=== PATIENT | female | born 1930 | race Caucasian/White ===

== ENCOUNTER → 2017-01-04 | Outpatient (CLI) | payer OTHER, BC ==
[~2017-01-04] MED LIST: AMOX250C3 PO; ARTIOIN OP; ARTISOL8 OPB; AZAT50TA17 PO; PRED-301 PO; TRIA37.5 PO
[2017-01-04 08:57] LABS: BASO % 0.3 %; BASO ABS # 0.02 K/uL (0-0.2); COMPLETE YES; HEMATOCRIT 36.9 % (37-47); IG% 0.4 %; LYMPH % 11.9 %; MEAN CORPUSCULAR HEMOGLOBIN 31.4 pg (25-34); MEAN CORPUSCULAR HGB CONC 34.1 g/dl (32-36); MEAN PLATELET VOLUME 9.1 fL (7.4-10.4); MONO % 13.1 %; NEUT % 72.3 %; PLATELET COUNT 262 K/uL (130-400); RED BLOOD COUNT 4.01 M/uL (4.2-5.4); WHITE BLOOD COUNT 7.55 K/uL (4.8-10.8)
[2017-01-04 09:03] LABS: BLOOD UREA NITROGEN 30 mg/dl (7-18); BUN/CREATININE RATIO 33.9 (10-20); CARBON DIOXIDE 32 mmol/L (21-32); CHLORIDE 97 mmol/L (98-107); CREATININE 0.87 mg/dl (0.60-1.20); GLUCOSE 85 mg/dl (70-99); POTASSIUM 3.9 mmol/L (3.5-5.1); SODIUM 135 mmol/L (136-145)
== END | disposition home or self-care (01) ==
LOC: C.LABVPSUA 08:40
PROVIDERS: ATTEND Internal Medicine Critical Care Medicine
DX: I10 Essential (primary) hypertension (principal)

== ENCOUNTER → 2017-12-27 | Outpatient (CLI) | payer OTHER, BC ==
[2017-12-27 09:30] LABS: HEMATOCRIT 37.4 % (37-47); HEMOGLOBIN 12.4 g/dL (12.0-16.0); MEAN CELL VOLUME 92.6 fL (80-100); MEAN CORPUSCULAR HEMOGLOBIN 30.7 pg (25-34); MEAN CORPUSCULAR HGB CONC 33.2 g/dl (32-36); MEAN PLATELET VOLUME 9.4 fL (7.4-10.4); PLATELET COUNT 249 K/uL (130-400); RED CELL DISTRIBUTION WIDTH CV 13.5 % (11.5-14.5); RED CELL DISTRIBUTION WIDTH SD 45.8 fL (36.4-46.3); WHITE BLOOD COUNT 7.48 K/uL (4.8-10.8)
[2017-12-27 09:41] LABS: BLOOD UREA NITROGEN 30 mg/dl (7-18); CALCIUM 8.9 mg/dl (8.5-10.1); CARBON DIOXIDE 30 mmol/L (21-32); CREATININE 0.82 mg/dl (0.60-1.20); GLUCOSE 82 mg/dl (70-99); POTASSIUM 4.5 mmol/L (3.5-5.1); SODIUM 135 mmol/L (136-145)
== END ==
LOC: C.LABVPSUA 09:17
PROVIDERS: ATTEND Internal Medicine Critical Care Medicine
DX: R63.1 Polydipsia (principal); D64.9 Anemia, unspecified; L65.9 Nonscarring hair loss, unspecified

== ENCOUNTER 2018-04-08 16:34 | Inpatient (IN) | payer OTHER, BC ==
[~2018-04-08] VITALS: Ht 157.5 cm; Wt 56.0 kg
--- NOTE | 2018-04-08 16:50 | EMERGENCY ROOM VISIT NOTE ---
History Report prepared by Martha: Tony Pardo Under the Supervision of: Dr. Mars Aleman M.D. First contact with patient: 16:36 Chief Complaint: SHORTNESS OF BREATH Stated Complaint: SOB History of Present Illness The patient is a 87 year old white female with a past medical history of HTN, RA , cholecystectomy, and peripheral vascular disease who presents to the ED with a cc of persistent shortness of breath beginning this morning. Positive productive cough, lower extremity swelling. Negative sore throat, chest pain, nausea, vomiting. Per EMS, the patient was given an albuterol treatment and was put on oxygen, which helped mildly relieve her symptoms. Source of History: patient, EMS Onset: this morning Quality: other (short of breath) Timing: other (persistent) Modifying Factors (Relieving): oxygen, other (albuterol treatment) Associated Symptoms: + cough, No sorethroat, No chest pain, No nausea, No vomiting Note: Associated symptoms: LE swelling Review of Systems See HPI for pertinent positives and negatives. A total of ten systems were reviewed and were otherwise negative. Past Medical & Surgical Medical Problems: (1) Hypertension (2) PAD (peripheral artery disease) (3) Rheumatoid arthritis (4) Vascular disease of legs and feet Surgical Problems: (1) Hx of cholecystectomy Family History Patient reports no known family medical history. Social History Smoking Status: Never Smoker Alcohol Use: none Drug Use: none Marital Status: Housing Status: lives with family Occupation Status: retired Current/Historical Medications Scheduled Ascorbic Acid (Ascorbic Acid), 500 MG PO DAILY Azathioprine (Imuran), 25 MG PO DAILY Carbamide Peroxide (Otic) (Debrox), 5 DROPS OT PRN/UD Hydrochlorothiazide (Hctz), 25 MG PO DAILY Lisinopril (Zestril), 2.5 MG PO DAILY Polyethylene Glycol-Propylene (Systane), 1 DROPS OPB TID Prednisone (Prednisone), 10 MG PO DAILY Scheduled PRN Acetaminophen (Tylenol), 650 MG PO Q4H PRN for Pain or Fever Calcium Carbonate (Tums), 500 MG PO QID PRN for Indigestion Tramadol (Ultram), 50 MG PO Q6H PRN for Pain Allergies Coded Allergies: Erythromycin (Verified Adverse Reaction, Mild, upset stomach, 11/17/11) Physical Exam Vital Signs Date Time Temp Pulse Resp B/P (MAP) Pulse Ox O2 Delivery O2 Flow Rate FiO2 04/08/18 21:16 97 04/08/18 20:54 96 22 178/89 98 Nasal Cannula 2.0 04/08/18 18:55 88 24 97 Nasal Cannula 2.0 04/08/18 18:04 87 24 205/93 100 Nasal Cannula 2.0 04/08/18 17:03 83 04/08/18 16:44 96 Room Air 04/08/18 16:44 96 Room Air 04/08/18 16:44 96 Room Air 04/08/18 16:44 36.9 86 26 199/88 96 Room Air Physical Exam GENERAL: Awake, alert, well-appearing, in moderate distress, nasal canula in place. HENT: Normocephalic, atraumatic. EYES: Normal conjunctiva. Sclera non-icteric. PERRL. No anisocoria. NECK: Supple. No nuchal rigidity. FROM. Non stridulous. RESPIRATORY: CTAB, no rhonchi, wheezing, crackles CARDIAC: RRR, no MRG ABDOMEN: Soft, NTND, BS+ MSK: No chest wall TTP, no LE edema NEURO: GCS 15, CN 2-12 intact, moves all 4s on command SKIN: No rash or jaundice noted. Contractures at bilateral hands. Superficial ulcerations bilaterally feet plantar surface. Medical Decision & Procedures ER Provider Diagnostic Interpretation: Radiology results as stated below per my review and radiologist interpretation: CHEST ONE VIEW PORTABLE CLINICAL HISTORY: EVALUATE RESPIRATORY DISTRESS.DYSPNEA COMPARISON STUDY: Chest radiograph July 29, 2016 PA FINDINGS: Incidental note is made of severe osteoarthritis of both glenohumeral joints. There is no pneumothorax. Mild elevation of the left hemidiaphragm is noted. Left basilar opacity is noted. There is lower lung interstitial thickening which suggests chronic interstitial lung disease. There may be calcified mediastinal left hilar nodes. Mild to moderate cardiomegaly is noted. There is no evidence for pulmonary edema. IMPRESSION: 1. Lower lung interstitial thickening which suggests interstitial lung disease. 2. Left basilar opacity which favors atelectasis. 3. Mild to moderate cardiomegaly without evidence for pulmonary edema. Electronically signed by: Néstor Rod M.D. 04/08/2018 4:59 PM Dictated Date/Time: 04/08/2018 4:[address] ANGIOGRAPHY OF THE CHEST, PULMONARY EMBOLUS PROTOCOL CLINICAL HISTORY: Shortness of breath. COMPARISON STUDY: Chest radiograph July 29, 2016 and April 08, 2018. TECHNIQUE: Following IV administration of 115 mL of Optiray-320, helical axial images of the chest were obtained utilizing the pulmonary embolus protocol. Maximal intensity projections and sagittal and coronal reformats were viewed on an independent 3D workstation. IV contrast was administered without complication. A dose lowering technique was utilized adhering to the principles of ALARA. FINDINGS: No pulmonary emboli are identified. The heart is moderately enlarged. There is no thoracic aortic dissection or pericardial effusion. There is extensive atherosclerotic plaque of the coronary arteries and the thoracic aorta. Of note, there is a saccular outpouching arising from the proximal abdominal aorta that measures 4.1 x 3.5 cm. This is either at or immediately superior to the takeoff of the celiac axis. There is no evidence for rupture. This contains eccentric mural thrombus. There is severe stenosis at the origin of the celiac axis and superior mesenteric arteries. No pneumothorax is present. There is no pleural effusion. Mild groundglass opacities throughout the lungs are noted. Lower lung predominant subpleural cystic changes noted. This is similar to exam of December 01, 2013. There is band-like left lower lobe opacity is well. There are multiple compression fractures within the lower thoracic and upper lumbar spine mild biliary ductal dilatation is likely related to prior cholecystectomy. This is unchanged. There is trace pneumobilia. IMPRESSION: 1. No pulmonary emboli identified. 2. 4.1 x 3.5 cm saccular outpouching arising from anterior aspect of the proximal abdominal aorta, either at or immediately proximal to the takeoff of the celiac axis. This either reflects a saccular aneurysm or large penetrating ulcer. No rupture. Vascular surgery consultation is recommended. Severe stenosis at the origin of the celiac axis and superior mesenteric artery with extensive multifocal atherosclerotic plaque. Extensive coronary artery calcification. 3. Lower lung predominant subpleural cystic change. This could reflect cystic lung disease or honeycombing. 4. Mild groundglass opacities within the lungs which favor atelectasis. However, mild pulmonary edema could appear similar. Electronically signed by: Néstor Rod M.D. 04/08/2018 7:26 PM Dictated Date/Time: 04/08/2018 7:[address] ANGIOGRAPHY OF THE NECK WITH CONTRAST CLINICAL HISTORY: Shortness of breath. Hoarse voice. COMPARISON STUDY: No previous studies for comparison. Technique: CT angiography of the carotid and vertebral arteries was obtained using [employer] 320 IV and 3D reconstruction on an independent workstation. NASCET criteria was utilized. A dose lowering technique was utilized adhering to the principles of ALARA. CT DOSE: 620.42 mGy.cm Findings: Please note that the chest CT will be reported separately. Apparent thickening of the vocal cords, right greater than left, is noted. This is likely artifactual. Evaluation is difficult given motion artifact at this level. Epiglottis is normal. There is no cervical lymphadenopathy. No suspicious osseous lesions are present. There is moderate plaque within the proximal bilateral internal carotid arteries without high-grade stenosis. Moderate to severe stenosis at the origin of the right vertebral artery. The right vertebral artery is dominant. There is mild stenosis of the intracranial portion of the right vertebral artery. There is occlusion versus severe stenosis at the origin of the left vertebral artery. Multifocal stenoses within the left vertebral artery are noted. Visualized portions of the intracranial contents are unremarkable. Orbits are unremarkable. Sinuses and mastoid air cells are clear. IMPRESSION: 1. Moderate atherosclerotic plaque within the proximal bilateral internal carotid arteries without significant stenosis. 2. Severe multifocal stenoses of the left vertebral artery. Moderate to severe stenosis at the origin of the right vertebral artery. 3. Apparent thickening of the vocal cords, right greater than left. This is suboptimally assessed on this exam given motion artifact and is probably artifactual. However, a mass lesion cannot be excluded and if persistent symptoms, correlation with direct visualization is recommended. Electronically signed by: Néstor Rod M.D. 04/08/2018 7:12 PM Dictated Date/Time: 04/08/2018 7:03 PM Laboratory Results 04/08/18 17:00 Red Blood Count 4.64, Mean Corpuscular Volume 92.0, Mean Corpuscular Hemoglobin 30.8, Mean Corpuscular Hemoglobin Concent 33.5, Mean Platelet Volume 9.2, Neutrophils (%) (Auto) 87.7, Lymphocytes (%) (Auto) 8.1, Monocytes (%) (Auto) 3.5, Eosinophils (%) (Auto) 0.1, Basophils (%) (Auto) 0.1, Neutrophils # (Auto) 7.48, Lymphocytes # (Auto) 0.69, Monocytes # (Auto) 0.30, Eosinophils # (Auto) 0.01, Basophils # (Auto) 0.01 04/08/18 17:00 Test 04/08/18 17:00 04/08/18 18:06 White Blood Count 8.53 K/uL (4.8-10.8) Red Blood Count 4.64 M/uL (4.2-5.4) Hemoglobin 14.3 g/dL (12.0-16.0) Hematocrit 42.7 % (37-47) Mean Corpuscular Volume 92.0 fL (80-100) Mean Corpuscular Hemoglobin 30.8 pg (25-34) Mean Corpuscular Hemoglobin Concent 33.5 g/dl (32-36) Platelet Count 240 K/uL (130-400) Mean Platelet Volume 9.2 fL (7.4-10.4) Neutrophils (%) (Auto) 87.7 % Lymphocytes (%) (Auto) 8.1 % Monocytes (%) (Auto) 3.5 % Eosinophils (%) (Auto) 0.1 % Basophils (%) (Auto) 0.1 % Neutrophils # (Auto) 7.48 K/uL (1.4-6.5) Lymphocytes # (Auto) 0.69 K/uL (1.2-3.4) Monocytes # (Auto) 0.30 K/uL (0.11-0.59) Eosinophils # (Auto) 0.01 K/uL (0-0.5) Basophils # (Auto) 0.01 K/uL (0-0.2) RDW Standard Deviation 45.8 fL (36.4-46.3) RDW Coefficient of Variation 13.6 % (11.5-14.5) Immature Granulocyte % (Auto) 0.5 % Immature Granulocyte # (Auto) 0.04 K/uL (0.00-0.02) Prothrombin Time 10.0 SECONDS (9.0-12.0) Prothromb Time International Ratio 1.0 (0.9-1.1) Activated Partial Thromboplast Time 25.2 SECONDS (21.0-31.0) Partial Thromboplastin Ratio 1.0 Anion Gap 5.0 mmol/L (3-11) Est Creatinine Clear Calc Drug Dose 34.4 ml/min Estimated GFR () 59.7 Estimated GFR (Non- 51.5 BUN/Creatinine Ratio 34.9 (10-20) Calcium Level 8.9 mg/dl (8.5-10.1) Total Bilirubin 0.6 mg/dl (0.2-1) Direct Bilirubin 0.1 mg/dl (0-0.2) Aspartate Amino Transf (AST/SGOT) 21 U/L (15-37) Alanine Aminotransferase (ALT/SGPT) 20 U/L (12-78) Alkaline Phosphatase 59 U/L (45-117) Troponin I 0.044 ng/ml (0-0.045) Pro-B-Type Natriuretic Peptide 2892 pg/ml (0-1800) Total Protein 8.3 gm/dl (6.4-8.2) Albumin 3.4 gm/dl (3.4-5.0) Lipase 264 U/L (73-393) Urine Color YELLOW Urine Appearance CLEAR (CLEAR) Urine pH 7.5 (4.5-7.5) Urine Specific [place] 1.013 (1.000-1.030) Urine Protein NEG (NEG) Urine Glucose (UA) NEG (NEG) Urine Ketones NEG (NEG) Urine Occult Blood NEG (NEG) Urine Nitrite NEG (NEG) Urine Bilirubin NEG (NEG) Urine Urobilinogen NEG (NEG) Urine Leukocyte Esterase TRACE (NEG) Urine WBC (Auto) 1-5 /hpf (0-5) Urine RBC (Auto) 0-4 /hpf (0-4) Urine Hyaline Casts (Auto) 1-5 /lpf (0-5) Urine Epithelial Cells (Auto) 10-20 /lpf (0-5) Urine Bacteria (Auto) NEG (NEG) Venous Blood pH 7.46 (7.36-7.41) Venous Blood Partial Pressure CO2 40 mmHg (38.0-50.0) Venous Blood Partial Pressure O2 68 mmHg Venous Blood HCO3 28 mmol/L Venous Blood Oxygen Saturation 93.7 % Venous Blood Base Excess 3.8 mEq/L Laboratory results reviewed by me Medications Administered Medications (Trade) Dose Ordered Sig/Radha Route Start Time Stop Time Status Last Admin Dose Admin Sodium Chloride 500 ml @ 500 mls/hr Q1H STAT IV 04/08/18 17:50 04/08/18 18:49 DC 04/08/18 17:15 500 MLS/HR ECG Per My Interpretation Indication: SOB/dyspnea Rate (beats per minute): 87 Rhythm: normal sinus Findings: T-wave inversion (Lead I and AVL), left axis deviation, other ( depressions in Lead III and AVF, T wave depression in Lead I and AVL) Comparison ECG Date: 12/03/13 Change: Findings are new ED Course 163: The patient was evaluated in room C02B. A complete history and physical exam was performed. 1655: I discussed the patients case with Dr. Becker, [facility] [place] [place] Cardiology. He suggests working up the patient for a rule out of a PE. 1803: I reevaluated the patient and she is doing better. 1939: I discussed the patients case with Dr. Maldonado, [facility]. He suggests controlling the patients blood pressure. 1947: I discussed the patients case with Dr. Jansen, [facility] Hospitalist. He understands the patients condition and agrees to accept the patient. The patient will be evaluated for further management. Medical Decision Nursing notes reviewed. Ancillary studies and prior records reviewed. The patient is a 87 year old white female with a past medical history of HTN, RA , cholecystectomy, and peripheral vascular disease who presents to the ED with a cc of persistent shortness of breath beginning this morning. The patient's presentation and history were concerning for etiologies such as infections, reactive airway disease, pneumonia, pneumothorax, COPD, CHF, cardiac ischemia, pulmonary embolism, musculoskeletal, gastrointestinal, as well as others were entertained. Patient was seen and evaluated the bedside. Patient did complain of acute onset of shortness of breath beginning this morning. Patient denies any infectious symptoms. Patient was placed on oxygen as well is given an albuterol treatment prior to arrival. The patient does sounds that she has a mildly hoarse voice. The patient is non-stridulous and the patient does have clear breath sounds. The patient does not appear overtly volume overloaded and does not have any crackles. Patient did blood work completed along with EKG troponin chest x-ray. Patient' s EKG did show some subtle elevations in the inferior leads. Patient denies any chest pains. Patient is notably hypertensive. I did speak with the on- call senior database engineer who stated to continue medical treatment unless there were more clear signs of cardiac ischemia. Patient's blood work does show an elevated BNP. Upon review of a prior echo the patient does have some MR TR and some diastolic dysfunction. The patient does have an elevated BUN/creatinine ratio. Patient's hemoglobin is not low. Less likely GI bleed. Believe patient is fairly volume down at the bedside ultrasound showed a virtually flat IVC. Will gently hydrate as the patient may have an element of regurg or stenosis related to a valvulopathy. Patient's most recent echo in our system is from 2016. Patient did have a CTA of the neck given this sort of hoarse voice in addition to CT PE protocol to rule out PE. Patient's CTA does show moderate to severe stenosis of the carotids. The patient is not altered. There is some notable vocal cord enlargement less likely mass but cannot be ruled out with CT. Upon reassessment the patient was feeling improved. Patient states that she did take her antihypertensives this morning. I do not want to decrease her preload at this time as the patient's IVC is fairly flat. Will defer antihypertensive to the inpatient team. May require some afterload reduction. Medication Reconcilliation Current Medication List: was personally reviewed by me Blood Pressure Screening Patient's blood pressure: Elevated blood pressure Referred to hospitalist Consults Time Called: 1650 Consulting Physician: Dr. Becker [facility] [place] [place] Cardiology Returned Call: 1655 I discussed the patients case with Dr. Becker [facility] [place] [place] Card[facility]. He suggests working up the patient for a rule out of a PE. Additional Consults: Time Called: 1934 Consulted Physician: Dr. Maldonado, [facility]. Returned Call: 1939 Additional Comments: I discussed the patients case with Dr. Maldonado, [facility]. He suggests controlling the patients blood pressure. Time Called: 1942 Consulted Physician: Dr. Jansen [facility] Hospitalist Returned Call: 1947 Additional Comments: I discussed the patients case with Dr. Jansen, [facility] Hospitalist. He understands the patients condition and agrees to accept the patient. The patient will be evaluated for further management. Impression Primary Impression: CHF (congestive heart failure) Additional Impressions: SOB (shortness of breath) Celiac artery stenosis SMA stenosis Abdominal aortic aneurysm (AAA) Vertebral artery stenosis Scribe Attestation The scribe's documentation has been prepared under my direction and personally reviewed by me in its entirety. I confirm that the note above accurately reflects all work, treatment, procedures, and medical decision making performed by me. Departure Information Dispostion Being Evaluated By Hospitalist Referrals [facility] (PCP) Patient Instructions [facility] Problem Qualifiers Primary Impression: CHF (congestive heart failure) Heart failure type: systolic Heart failure chronicity: acute Qualified Codes: I50.21 - Acute systolic (congestive) heart failure Additional Impressions: Abdominal aortic aneurysm (AAA) Presence of rupture: without rupture Qualified Codes: I71.4 - Abdominal aortic aneurysm, without rupture Vertebral artery stenosis Laterality: bilateral Qualified Codes: I65.03 - Occlusion and stenosis of bilateral vertebral arteries
[2018-04-08] MEDS ORDERED: OPTIRAY 320 IV PRN (17:00)
--- NOTE | 2018-04-08 17:00 | DIAGNOSTIC IMAGING REPORT ---
CHEST ONE VIEW PORTABLE CLINICAL HISTORY: EVALUATE RESPIRATORY DISTRESS.DYSPNEA COMPARISON STUDY: Chest radiograph July 29, 2016 PA FINDINGS: Incidental note is made of severe osteoarthritis of both glenohumeral joints. There is no pneumothorax. Mild elevation of the left hemidiaphragm is noted. Left basilar opacity is noted. There is lower lung interstitial thickening which suggests chronic interstitial lung disease. There may be calcified mediastinal left hilar nodes. Mild to moderate cardiomegaly is noted. There is no evidence for pulmonary edema. IMPRESSION: 1. Lower lung interstitial thickening which suggests interstitial lung disease. 2. Left basilar opacity which favors atelectasis. 3. Mild to moderate cardiomegaly without evidence for pulmonary edema. Electronically signed by: Néstor Rod M.D. 04/08/2018 4:59 PM Dictated Date/Time: 04/08/2018 4:57 PM
[2018-04-08 17:19] LABS: BASO % 0.1 %; BASO ABS # 0.01 K/uL (0-0.2); EOS % 0.1 %; EOS ABS # 0.01 K/uL (0-0.5); HEMATOCRIT 42.7 % (37-47); HEMOGLOBIN 14.3 g/dL (12.0-16.0); IG# 0.04 K/uL (0.00-0.02); LYMPH % 8.1 %; LYMPH ABS # 0.69 K/uL (1.2-3.4); MEAN CORPUSCULAR HEMOGLOBIN 30.8 pg (25-34); MEAN CORPUSCULAR HGB CONC 33.5 g/dl (32-36); MEAN PLATELET VOLUME 9.2 fL (7.4-10.4); MONO % 3.5 %; NEUT % 87.7 %; NEUT ABS # 7.48 K/uL (1.4-6.5); PLATELET COUNT 240 K/uL (130-400); RED CELL DISTRIBUTION WIDTH CV 13.6 % (11.5-14.5); RED CELL DISTRIBUTION WIDTH SD 45.8 fL (36.4-46.3); WHITE BLOOD COUNT 8.53 K/uL (4.8-10.8)
[2018-04-08 17:30] LABS: PTT PATIENT 25.2 SECONDS (21.0-31.0)
[2018-04-08] MEDS ORDERED: HYDR25TA4 PO (17:36)
[2018-04-08] MEDS ORDERED: LISI-789 PO (17:38)
[2018-04-08] MEDS ORDERED: PRED10TA PO (17:39)
[2018-04-08] MEDS ORDERED: ASCO500T16 PO (17:42)
[2018-04-08 17:44] LABS: ALBUMIN 3.4 gm/dl (3.4-5.0); CALCIUM 8.9 mg/dl (8.5-10.1); CREATININE 0.98 mg/dl (0.60-1.20); POTASSIUM 4.6 mmol/L (3.5-5.1); TOTAL PROTEIN 8.3 gm/dl (6.4-8.2)
[2018-04-08] MEDS ORDERED: POLYSOL4 OPB (17:45)
[2018-04-08] MEDS ORDERED: ACET-1311 PO (17:49)
[2018-04-08] MEDS ORDERED: SODIUM CHLORIDE 0.9% 500ML 500 ML IV STA (17:50)
[2018-04-08] MEDS ORDERED: CARB1SOL8 OT (17:54)
[2018-04-08] MEDS ORDERED: CALC500C3 PO (17:58)
[2018-04-08] MEDS ORDERED: TRAM-10 PO (18:00)
--- NOTE | 2018-04-08 19:13 | DIAGNOSTIC IMAGING REPORT ---
CT ANGIOGRAPHY OF THE NECK WITH CONTRAST CLINICAL HISTORY: Shortness of breath. Hoarse voice. COMPARISON STUDY: No previous studies for comparison. Technique: CT angiography of the carotid and vertebral arteries was obtained using [employer] 320 IV and 3D reconstruction on an independent workstation. NASCET criteria was utilized. A dose lowering technique was utilized adhering to the principles of ALARA. CT DOSE: 620.42 mGy.cm Findings: Please note that the chest CT will be reported separately. Apparent thickening of the vocal cords, right greater than left, is noted. This is likely artifactual. Evaluation is difficult given motion artifact at this level. Epiglottis is normal. There is no cervical lymphadenopathy. No suspicious osseous lesions are present. There is moderate plaque within the proximal bilateral internal carotid arteries without high-grade stenosis. Moderate to severe stenosis at the origin of the right vertebral artery. The right vertebral artery is dominant. There is mild stenosis of the intracranial portion of the right vertebral artery. There is occlusion versus severe stenosis at the origin of the left vertebral artery. Multifocal stenoses within the left vertebral artery are noted. Visualized portions of the intracranial contents are unremarkable. Orbits are unremarkable. Sinuses and mastoid air cells are clear. IMPRESSION: 1. Moderate atherosclerotic plaque within the proximal bilateral internal carotid arteries without significant stenosis. 2. Severe multifocal stenoses of the left vertebral artery. Moderate to severe stenosis at the origin of the right vertebral artery. 3. Apparent thickening of the vocal cords, right greater than left. This is suboptimally assessed on this exam given motion artifact and is probably artifactual. However, a mass lesion cannot be excluded and if persistent symptoms, correlation with direct visualization is recommended. Electronically signed by: Néstor Rod M.D. 04/08/2018 7:12 PM Dictated Date/Time: 04/08/2018 7:03 PM
--- NOTE | 2018-04-08 19:27 | DIAGNOSTIC IMAGING REPORT ---
CT ANGIOGRAPHY OF THE CHEST, PULMONARY EMBOLUS PROTOCOL CLINICAL HISTORY: Shortness of breath. COMPARISON STUDY: Chest radiograph July 29, 2016 and April 08, 2018. TECHNIQUE: Following IV administration of 115 mL of Optiray-320, helical axial images of the chest were obtained utilizing the pulmonary embolus protocol. Maximal intensity projections and sagittal and coronal reformats were viewed on an independent 3D workstation. IV contrast was administered without complication. A dose lowering technique was utilized adhering to the principles of ALARA. FINDINGS: No pulmonary emboli are identified. The heart is moderately enlarged. There is no thoracic aortic dissection or pericardial effusion. There is extensive atherosclerotic plaque of the coronary arteries and the thoracic aorta. Of note, there is a saccular outpouching arising from the proximal abdominal aorta that measures 4.1 x 3.5 cm. This is either at or immediately superior to the takeoff of the celiac axis. There is no evidence for rupture. This contains eccentric mural thrombus. There is severe stenosis at the origin of the celiac axis and superior mesenteric arteries. No pneumothorax is present. There is no pleural effusion. Mild groundglass opacities throughout the lungs are noted. Lower lung predominant subpleural cystic changes noted. This is similar to exam of December 01, 2013. There is band-like left lower lobe opacity is well. There are multiple compression fractures within the lower thoracic and upper lumbar spine mild biliary ductal dilatation is likely related to prior cholecystectomy. This is unchanged. There is trace pneumobilia. IMPRESSION: 1. No pulmonary emboli identified. 2. 4.1 x 3.5 cm saccular outpouching arising from anterior aspect of the proximal abdominal aorta, either at or immediately proximal to the takeoff of the celiac axis. This either reflects a saccular aneurysm or large penetrating ulcer. No rupture. Vascular surgery consultation is recommended. Severe stenosis at the origin of the celiac axis and superior mesenteric artery with extensive multifocal atherosclerotic plaque. Extensive coronary artery calcification. 3. Lower lung predominant subpleural cystic change. This could reflect cystic lung disease or honeycombing. 4. Mild groundglass opacities within the lungs which favor atelectasis. However, mild pulmonary edema could appear similar. Electronically signed by: Néstor Rod M.D. 04/08/2018 7:26 PM Dictated Date/Time: 04/08/2018 7:12 PM
[2018-04-08] MEDS ORDERED: LABETALOL HCL IV 5 MG/ML 20ML IV STA (19:40)
[2018-04-08] MEDS ORDERED: METOPROLOL TARTRATE 1 MG/ML VIAL IV STA (20:31)
[2018-04-08] MEDS ORDERED: CALCIUM CARBONATE 500 MG CHEWABLE PO PRN (22:15)
[2018-04-08] MEDS ORDERED: ACETAMINOPHEN 325 MG TAB PO PRN ×3 (22:15→23:45)
--- NOTE | 2018-04-08 22:19 | History and Physical ---
History & Physical Date & Time of Service: Apr 08, 2018 at 22:15 Chief Complaint: SOB Primary Care Physician: Shelbie Ash [facility] History of Present Illness Source: patient 87-year-old female presents with shortness of breath earlier this morning. She states she has had shortness of breath "a long time" but that earlier this morning she "just could not breathe". She is unsure of why it acutely worsened. Patient is a resident of [place] and was transported via EMS to the ED. She says the albuterol and oxygen provided in route help relieve her symptoms. She denies any concurrent chest pain, nausea or vomiting, no recent illness or fever/chills, or any other acute concerns. When asked about her present hoarse voice, she says that she has had "voice problems" for many years now which she attributes to an anesthesia complication related to cholecystectomy surgery. She says her hoarse voice is a bit worse today as well. Past Medical/Surgical History PMH: Hypertension, peripheral artery disease, rheumatoid arthritis, lower extremity vascular disease, right retinal artery occlusion PSH: Cholecystectomy, right knee replacement, right hip replacement, bilateral cataract surgery, foot and arm surgeries. Family History Patient reports no known family medical history. 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) Immunizations History of Influenza Vaccine: Yes Influenza Vaccine Date: Jul 31, 2013 History of Tetanus Vaccine?: Yes Tetanus Immunization Date: Jul 31, 2013 History of Pneumococcal: Yes History of Hepatitis B Vaccine: No Allergies Coded Allergies: Erythromycin (Verified Adverse Reaction, Mild, upset stomach, 11/17/11) Home Medications Scheduled Ascorbic Acid (Ascorbic Acid), 500 MG PO DAILY Azathioprine (Imuran), 25 MG PO DAILY Carbamide Peroxide (Otic) (Debrox), 5 DROPS OT PRN/UD Hydrochlorothiazide (Hctz), 25 MG PO DAILY Lisinopril (Zestril), 2.5 MG PO DAILY Polyethylene Glycol-Propylene (Systane), 1 DROPS OPB TID Prednisone (Prednisone), 10 MG PO DAILY Scheduled PRN Acetaminophen (Tylenol), 650 MG PO Q4H PRN for Pain or Fever Calcium Carbonate (Tums), 500 MG PO QID PRN for Indigestion Tramadol (Ultram), 50 MG PO Q6H PRN for Pain Review of Systems Constitutional: No fever, No chills Respiratory: + cough, + shortness of breath Cardiovascular: No chest pain, No edema Abdomen: No pain, No nausea, No vomiting, No diarrhea Musculoskeletal: + joint pain (hx of RA) Neurologic: No numbness/tingling (not acutely) Physical Exam Vital Signs Date Time Temp Pulse Resp B/P (MAP) Pulse Ox O2 Delivery O2 Flow Rate FiO2 04/08/18 21:41 95 162/75 04/08/18 21:16 97 04/08/18 20:54 96 22 178/89 98 Nasal Cannula 2.0 04/08/18 18:55 88 24 97 Nasal Cannula 2.0 04/08/18 18:04 87 24 205/93 100 Nasal Cannula 2.0 04/08/18 17:03 83 04/08/18 16:44 96 Room Air 04/08/18 16:44 96 Room Air 04/08/18 16:44 96 Room Air 04/08/18 16:44 36.9 86 26 199/88 96 Room Air General Appearance: Awake, alert & oriented, comfortable in general, NAD. Mouth: Dry oral mucous membranes. CV: +S1S2 RRR, no murmur. Pulm: Clear to auscultation throughout. Abdomen: +BS, soft, non-tender, non-distended. Reducible, non-tender umbilical hernia. Extremities: No pedal edema or calf tenderness. Moving all extremities naturally and easily. Significant contractures of the bilateral hands and fingers. Superficial lesion/ulcerations to the bilateral plantar surfaces of the feet. Neuro: No gross neuro deficits. Diagnostics Laboratory Results Results Past 24 Hours Test 04/08/18 17:00 04/08/18 18:06 Range/Units White Blood Count 8.53 4.8-10.8 K/uL Red Blood Count 4.64 4.2-5.4 M/uL Hemoglobin 14.3 12.0-16.0 g/dL Hematocrit 42.7 37-47 % Mean Corpuscular Volume 92.0 80-100 fL Mean Corpuscular Hemoglobin 30.8 25-34 pg Mean Corpuscular Hemoglobin Concent 33.5 32-36 g/dl Platelet Count 240 130-400 K/uL Mean Platelet Volume 9.2 7.4-10.4 fL Neutrophils (%) (Auto) 87.7 % Lymphocytes (%) (Auto) 8.1 % Monocytes (%) (Auto) 3.5 % Eosinophils (%) (Auto) 0.1 % Basophils (%) (Auto) 0.1 % Neutrophils # (Auto) 7.48 1.4-6.5 K/uL Lymphocytes # (Auto) 0.69 1.2-3.4 K/uL Monocytes # (Auto) 0.30 0.11-0.59 K/uL Eosinophils # (Auto) 0.01 0-0.5 K/uL Basophils # (Auto) 0.01 0-0.2 K/uL RDW Standard Deviation 45.8 36.4-46.3 fL RDW Coefficient of Variation 13.6 11.5-14.5 % Immature Granulocyte % (Auto) 0.5 % Immature Granulocyte # (Auto) 0.04 0.00-0.02 K/uL Prothrombin Time 10.0 9.0-12.0 SECONDS Prothromb Time International Ratio 1.0 0.9-1.1 Activated Partial Thromboplast Time 25.2 21.0-31.0 SECONDS Partial Thromboplastin Ratio 1.0 Sodium Level 134 136-145 mmol/L Potassium Level 4.6 3.5-5.1 mmol/L Chloride Level 100 98-107 mmol/L Carbon Dioxide Level 29 21-32 mmol/L Anion Gap 5.0 3-11 mmol/L Blood Urea Nitrogen 34 7-18 mg/dl Creatinine 0.98 0.60-1.20 mg/dl Est Creatinine Clear Calc Drug Dose 34.4 ml/min Estimated GFR () 59.7 Estimated GFR (Non- 51.5 BUN/Creatinine Ratio 34.9 10-20 Random Glucose 88 70-99 mg/dl Calcium Level 8.9 8.5-10.1 mg/dl Total Bilirubin 0.6 0.2-1 mg/dl Direct Bilirubin 0.1 0-0.2 mg/dl Aspartate Amino Transf (AST/SGOT) 21 15-37 U/L Alanine Aminotransferase (ALT/SGPT) 20 12-78 U/L Alkaline Phosphatase 59 45-117 U/L Troponin I 0.044 0-0.045 ng/ml Pro-B-Type Natriuretic Peptide 2892 0-1800 pg/ml Total Protein 8.3 6.4-8.2 gm/dl Albumin 3.4 3.4-5.0 gm/dl Lipase 264 73-393 U/L Urine Color YELLOW Urine Appearance CLEAR CLEAR Urine pH 7.5 4.5-7.5 Urine Specific [place] 1.013 1.000-1.030 Urine Protein NEG NEG Urine Glucose (UA) NEG NEG Urine Ketones NEG NEG Urine Occult Blood NEG NEG Urine Nitrite NEG NEG Urine Bilirubin NEG NEG Urine Urobilinogen NEG NEG Urine Leukocyte Esterase TRACE NEG Urine WBC (Auto) 1-5 0-5 /hpf Urine RBC (Auto) 0-4 0-4 /hpf Urine Hyaline Casts (Auto) 1-5 0-5 /lpf Urine Epithelial Cells (Auto) 10-20 0-5 /lpf Urine Bacteria (Auto) NEG NEG Venous Blood pH 7.46 7.36-7.41 Venous Blood Partial Pressure CO2 40 38.0-50.0 mmHg Venous Blood Partial Pressure O2 68 mmHg Venous Blood HCO3 28 mmol/L Venous Blood Oxygen Saturation 93.7 % Venous Blood Base Excess 3.8 mEq/L Diagnostic Radiology CHEST ONE VIEW PORTABLE CLINICAL HISTORY: EVALUATE RESPIRATORY DISTRESS.DYSPNEA COMPARISON STUDY: Chest radiograph July 29, 2016 PA FINDINGS: Incidental note is made of severe osteoarthritis of both glenohumeral joints. There is no pneumothorax. Mild elevation of the left hemidiaphragm is noted. Left basilar opacity is noted. There is lower lung interstitial thickening which suggests chronic interstitial lung disease. There may be calcified mediastinal left hilar nodes. Mild to moderate cardiomegaly is noted. There is no evidence for pulmonary edema. IMPRESSION: 1. Lower lung interstitial thickening which suggests interstitial lung disease. 2. Left basilar opacity which favors atelectasis. 3. Mild to moderate cardiomegaly without evidence for pulmonary edema. CT ANGIOGRAPHY OF THE CHEST, PULMONARY EMBOLUS PROTOCOL CLINICAL HISTORY: Shortness of breath. COMPARISON STUDY: Chest radiograph July 29, 2016 and April 08, 2018. TECHNIQUE: Following IV administration of 115 mL of [id number]-320, helical axial images of the chest were obtained utilizing the pulmonary embolus protocol. Maximal intensity projections and sagittal and coronal reformats were viewed on an independent 3D workstation. IV contrast was administered without complication. A dose lowering technique was utilized adhering to the principles of ALARA. FINDINGS: No pulmonary emboli are identified. The heart is moderately enlarged. There is no thoracic aortic dissection or pericardial effusion. There is extensive atherosclerotic plaque of the coronary arteries and the thoracic aorta. Of note, there is a saccular outpouching arising from the proximal abdominal aorta that measures 4.1 x 3.5 cm. This is either at or immediately superior to the takeoff of the celiac axis. There is no evidence for rupture. This contains eccentric mural thrombus. There is severe stenosis at the origin of the celiac axis and superior mesenteric arteries. No pneumothorax is present. There is no pleural effusion. Mild groundglass opacities throughout the lungs are noted. Lower lung predominant subpleural cystic changes noted. This is similar to exam of December 01, 2013. There is band-like left lower lobe opacity is well. There are multiple compression fractures within the lower thoracic and upper lumbar spine mild biliary ductal dilatation is likely related to prior cholecystectomy. This is unchanged. There is trace pneumobilia. IMPRESSION: 1. No pulmonary emboli identified. 2. 4.1 x 3.5 cm saccular outpouching arising from anterior aspect of the proximal abdominal aorta, either at or immediately proximal to the takeoff of the celiac axis. This either reflects a saccular aneurysm or large penetrating ulcer. No rupture. Vascular surgery consultation is recommended. Severe stenosis at the origin of the celiac axis and superior mesenteric artery with extensive multifocal atherosclerotic plaque. Extensive coronary artery calcification. 3. Lower lung predominant subpleural cystic change. This could reflect cystic lung disease or honeycombing. 4. Mild groundglass opacities within the lungs which favor atelectasis. However, mild pulmonary edema could appear similar. CT ANGIOGRAPHY OF THE NECK WITH CONTRAST CLINICAL HISTORY: Shortness of breath. Hoarse voice. COMPARISON STUDY: No previous studies for comparison. Technique: CT angiography of the carotid and vertebral arteries was obtained using [employer] 320 IV and 3D reconstruction on an independent workstation. NASCET criteria was utilized. A dose lowering technique was utilized adhering to the principles of ALARA. CT DOSE: 620.42 mGy.cm Findings: Please note that the chest CT will be reported separately. Apparent thickening of the vocal cords, right greater than left, is noted. This is likely artifactual. Evaluation is difficult given motion artifact at this level. Epiglottis is normal. There is no cervical lymphadenopathy. No suspicious osseous lesions are present. There is moderate plaque within the proximal bilateral internal carotid arteries without high-grade stenosis. Moderate to severe stenosis at the origin of the right vertebral artery. The right vertebral artery is dominant. There is mild stenosis of the intracranial portion of the right vertebral artery. There is occlusion versus severe stenosis at the origin of the left vertebral artery. Multifocal stenoses within the left vertebral artery are noted. Visualized portions of the intracranial contents are unremarkable. Orbits are unremarkable. Sinuses and mastoid air cells are clear. IMPRESSION: 1. Moderate atherosclerotic plaque within the proximal bilateral internal carotid arteries without significant stenosis. 2. Severe multifocal stenoses of the left vertebral artery. Moderate to severe stenosis at the origin of the right vertebral artery. 3. Apparent thickening of the vocal cords, right greater than left. This is suboptimally assessed on this exam given motion artifact and is probably artifactual. However, a mass lesion cannot be excluded and if persistent symptoms, correlation with direct visualization is recommended. Impression Assessment and Plan 87-year-old female admitted on 08 April 2018 for acute shortness of breath. PMH: Hypertension, peripheral artery disease, rheumatoid arthritis, lower extremity vascular disease, right retinal artery occlusion PSH: Cholecystectomy, right knee replacement, right hip replacement, bilateral cataract surgery, foot and arm surgeries. Shortness of breath: Noted worsening this morning, the patient says she has a history of the same. No reported known underlying pulmonary disease. Afebrile , not tachycardic, is mildly tachypneic however, and has good SpO2 on 2 L nasal cannula. Chest x-ray suggestive of interstitial lung disease. CTA chest did not show any PE but was suggestive of cystic lung disease. VBG notes minimal metabolic alkalosis. - We will start on albuterol as needed shortness of breath. Keep on supplemental oxygen to keep Sp02 over 92%. - Would likely benefit from outpatient pulmonary evaluation to include PFTs. EKG findings: At 1645 EKG is notable for ST elevations in lead III and aVF as well as ST segment depression in leads I and aVL. Patient says she has been chest pain-free throughout today. Troponin was 0.044. ED staff spoke with on- call amortization schedule clerk who recommended continued medical treatment unless there were more clear signs of cardiac ischemia. - We will trend her EKG and troponins overnight. Elevated BNP: Admit BNP was 2892. Last echocardiogram in July 2016 noted EF of 45-50% with grade 1 diastolic dysfunction. Based on ED imaging of the IVC, patient may be volume down. - We will start on some judicious IV fluids with NS at 75 ml/hr. Aortic lesion: CT of the chest noted a 4.1 x 3.5 cm saccular outpouching of the proximal abdominal aorta suggestive of a saccular aneurysm or large penetrating ulcer. No evidence of rupture. ED staff spoke with Dr. Maldonado (vascular surgery) who reportedly suggested controlling patient's blood pressure). - Will hold on vascular surgery consult since the phone consult by the ED revealed no intervention suggested other than control BP. Hoarseness: Patient notes worsening today with a history of the same. No stridor or present respiratory distress. - Recommend ENT consult when available. Vascular issues: CTA of the neck notes moderate plaque in the bilateral internal carotid arteries without significant stenosis as well as 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 Hypertension: In ED, noted elevations to 205/93. Received single dose of metoprolol in ED. - We will start metoprolol tartrate 25 mg p.o. twice daily. Will also add Lopressor 5 mg IV every 4 hours as needed for SBP over 160. - Continue home lisinopril and hydrochlorthiazide as well. Rheumatoid arthritis: Continue home Imuran and prednisone. Code status: Full code Diet: Regular DVT prophy: Lovenox and SCDs PT/OT: Deferred Disbo: Admit to Telemetry. Attending addendum: I have physically seen this patient, have supervised the medical residents activities, and agree with the H&P unless as otherwise noted. Assessment and Plan: Shortness of breath-- The patient will be admitted to telemetry for serial cardiac enzymes, serial EKG's, cardiac rhythm monitoring and a 2-D echocardiogram with Dopplers. Cardiology on-call felt no acute intervention at this time and best option would be to optimize blood pressure control. Continue lisinopril and HCTZ. Add metoprolol tartrate 25 mg p.o. twice daily. Metoprolol tartrate 5 mg IV every 4 hours as needed systolic blood pressure above 160. Chronic interstitial lung disease-- As noted on CT. Start nebulizers as noted above. 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 Left vertebral artery multifocal severe stenoses/right vertebral artery moderate to severe stenosis at origin-- Medical management with adjusting antihypertensives. Rheumatoid arthritis-- Continue Imuran 25 mg daily. She has been on prednisone 10 mg p.o. daily, which will be increased to 20 mg p.o. daily for moderate stress dosing. Chronic hoarseness/asymmetric vocal cord thickening-- ENT consult as outpatient. Remainder of orders as above. Advanced Directives Existing Advance Directive: No Existing Living Will: No Existing Power of Keno Writer: No Resuscitation Status VTE Prophylaxis Will order VTE Prophylaxis: Yes Resident Tracking Resident Involvement: Resident Care Provided Care Provided: Adult Hospital Medicine (admit)
[2018-04-08] MEDS ORDERED: ALBUTEROL 0.083% NEBU SOLN 3 ML VIAL INH PRN (22:30)
[2018-04-08 23:05] VITALS: BP 183/89; PULSE 88; TEMP 36.9; O2SAT 95; Ht 157.5 cm; Wt 56.0 kg
[2018-04-08] MEDS ORDERED: SODIUM CHLORIDE 0.9% 1000ML 1,000 ML IV SCH (23:59)
[2018-04-09] VITALS (7 sets, daily range): BP systolic 124–161; BP diastolic 63–74; PULSE 75–90; TEMP 36.4–36.9; O2SAT 90–99
[2018-04-09] MEDS: METOPROLOL TARTRATE 1 MG/ML VIAL IV PRN (01:25)
[2018-04-09] MEDS: HYDROCHLOROTHIAZIDE 25 MG TAB PO SCH (08:06)
[2018-04-09] MEDS: LISINOPRIL 2.5 MG TAB PO SCH (08:07)
[2018-04-09] MEDS: METOPROLOL TARTRATE 25 MG TAB PO SCH ×2 (08:07→20:26)
[2018-04-09] MEDS: ASCORBIC ACID 500 MG TAB PO SCH (08:08)
[2018-04-09] MEDS: AZATHIOPRINE 50 MG TAB PO SCH (08:08)
[2018-04-09] MEDS: ENOXAPARIN 40 MG/0.4 ML SYR SC SCH (08:08)
[2018-04-09] MEDS: ARTIFICIAL TEARS OP SOLN OPB SCH ×3 (08:13→22:08)
--- NOTE | 2018-04-09 08:28 | Progress Note ---
Subjective Date of Service: Apr 09, 2018. Subjective pt feels much better, still with some difficulty swallowing solid foods, states both paroxysms of SOB occurred after laying down bringing concern for aspiration pneumonitis worsening her chronic respiratory failure Problem List Medical Problems: (1) Abdominal aortic aneurysm (AAA) Status: Acute (2) Carotid artery stenosis Status: Acute (3) Celiac artery stenosis Status: Acute (4) CHF (congestive heart failure) Status: Acute (5) SMA stenosis Status: Acute (6) SOB (shortness of breath) Status: Acute Review of Systems Constitutional: + weakness, + fatigue, No fever, No chills ENT: + trouble swallowing, + problem reported (hoarse voice) Respiratory: + cough, + shortness of breath, No sputum, No wheezing Cardiac: + edema, No chest pain Abdomen: No pain, No nausea, No vomiting, No diarrhea Musculoskeletal: No joint pain, No muscle pain Psychiatric: No depression symptoms, No anhedonism Objective Vital Signs Date Time Temp Pulse Resp B/P (MAP) Pulse Ox O2 Delivery O2 Flow Rate FiO2 04/09/18 07:13 36.7 80 17 161/65 (97) 99 Nasal Cannula 2.0 04/09/18 04:57 36.9 75 16 157/73 (101) 99 Nasal Cannula 2.0 04/09/18 04:00 95 Nasal Cannula 2.0 04/09/18 01:25 88 183/89 04/08/18 23:05 36.9 88 12 183/89 95 Nasal Cannula 2.0 04/08/18 22:39 86 18 162/80 96 04/08/18 21:41 95 162/75 04/08/18 21:16 97 04/08/18 20:54 96 22 178/89 98 Nasal Cannula 2.0 04/08/18 18:55 88 24 97 Nasal Cannula 2.0 04/08/18 18:04 87 24 205/93 100 Nasal Cannula 2.0 04/08/18 17:03 83 04/08/18 16:44 96 Room Air 04/08/18 16:44 96 Room Air 04/08/18 16:44 96 Room Air 04/08/18 16:44 36.9 86 26 199/88 96 Room Air Physical Exam General Appearance: WD/WN, + thin Neck: supple, no JVD Respiratory/Chest: chest non-tender, + decreased breath sounds, + accessory muscle use, + rales Cardiovascular: regular rate, rhythm, no murmur Abdomen: non tender, soft Extremities: no pedal edema, + pertinent finding (marked ulnar deviations) Neurologic/Psychiatric: superintendent power II-XII nml as tested, alert Laboratory Results Last 24 Hours Test 04/08/18 17:00 04/08/18 18:06 04/09/18 03:55 White Blood Count 8.53 K/uL Red Blood Count 4.64 M/uL Hemoglobin 14.3 g/dL Hematocrit 42.7 % Mean Corpuscular Volume 92.0 fL Mean Corpuscular Hemoglobin 30.8 pg Mean Corpuscular Hemoglobin Concent 33.5 g/dl Platelet Count 240 K/uL Mean Platelet Volume 9.2 fL Neutrophils (%) (Auto) 87.7 % Lymphocytes (%) (Auto) 8.1 % Monocytes (%) (Auto) 3.5 % Eosinophils (%) (Auto) 0.1 % Basophils (%) (Auto) 0.1 % Neutrophils # (Auto) 7.48 K/uL Lymphocytes # (Auto) 0.69 K/uL Monocytes # (Auto) 0.30 K/uL Eosinophils # (Auto) 0.01 K/uL Basophils # (Auto) 0.01 K/uL RDW Standard Deviation 45.8 fL RDW Coefficient of Variation 13.6 % Immature Granulocyte % (Auto) 0.5 % Immature Granulocyte # (Auto) 0.04 K/uL Prothrombin Time 10.0 SECONDS Prothromb Time International Ratio 1.0 Activated Partial Thromboplast Time 25.2 SECONDS Partial Thromboplastin Ratio 1.0 Sodium Level 134 mmol/L Potassium Level 4.6 mmol/L Chloride Level 100 mmol/L Carbon Dioxide Level 29 mmol/L Anion Gap 5.0 mmol/L Blood Urea Nitrogen 34 mg/dl Creatinine 0.98 mg/dl Est Creatinine Clear Calc Drug Dose 34.4 ml/min Estimated GFR () 59.7 Estimated GFR (Non- 51.5 BUN/Creatinine Ratio 34.9 Random Glucose 88 mg/dl Calcium Level 8.9 mg/dl Total Bilirubin 0.6 mg/dl Direct Bilirubin 0.1 mg/dl Aspartate Amino Transf (AST/SGOT) 21 U/L Alanine Aminotransferase (ALT/SGPT) 20 U/L Alkaline Phosphatase 59 U/L Troponin I 0.044 ng/ml 0.160 ng/ml Pro-B-Type Natriuretic Peptide 2892 pg/ml Total Protein 8.3 gm/dl Albumin 3.4 gm/dl Lipase 264 U/L Urine Color YELLOW Urine Appearance CLEAR Urine pH 7.5 Urine Specific [place] 1.013 Urine Protein NEG Urine Glucose (UA) NEG Urine Ketones NEG Urine Occult Blood NEG Urine Nitrite NEG Urine Bilirubin NEG Urine Urobilinogen NEG Urine Leukocyte Esterase TRACE Urine WBC (Auto) 1-5 /hpf Urine RBC (Auto) 0-4 /hpf Urine Hyaline Casts (Auto) 1-5 /lpf Urine Epithelial Cells (Auto) 10-20 /lpf Urine Bacteria (Auto) NEG Venous Blood pH 7.46 Venous Blood Partial Pressure CO2 40 mmHg Venous Blood Partial Pressure O2 68 mmHg Venous Blood HCO3 28 mmol/L Venous Blood Oxygen Saturation 93.7 % Venous Blood Base Excess 3.8 mEq/L Assessment and Plan 87-F with acute systolic heart failure and hypertensive urgency, also found to have 4.1 cm aortic aneurysm with concern for ulceration, 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 Shortness of breath: Multifactorial, acute systolic heart failure with chronic respiratory failure CTA chest did not show any PE but was suggestive of cystic lung disease. -Last echocardiogram in July 2016 noted EF of 45-50% with grade 1 diastolic dysfunction, diuresis with iv lasix - albuterol prn and supplemental oxygen to keep Sp02 over 92%. - Pulmonary med evaluation Abnormal ECG , not associated with chest pain. Initial Troponin was 0.044, on-call medical director of hospice recommended medical management Aortic lesion: CT of the chest noted a 4.1 x 3.5 cm saccular outpouching of the proximal abdominal aorta suggestive of a saccular aneurysm or large penetrating ulcer. Hypertensive control, Hoarseness: pt is having difficlulty swallowing lunch, states its been like this for a while, she had sob when laying down, making consideration for aspiration pneumonitis on top of her chronic lung issues causing exacerbation, will have speech consult to help decide if VFSS or Barium swallow will be best CTA of the neck notes moderate plaque in the bilateral internal carotid arteries without significant stenosis as well as 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 Hypertension: start metoprolol tartrate 25 mg p.o. twice daily, pluls Lopressor 5 mg IV every 4 hours as needed for SBP over 160. - Continue home lisinopril and hydrochlorthiazide as well. Rheumatoid arthritis: Continue home Imuran and prednisone, watch for need for stress dosing. Code status: Full code Diet: Regular DVT prophy: Lovenox and SCDs PT/OT: Deferred Disbo: Admit to Telemetry.
[2018-04-10] VITALS (11 sets, daily range): BP systolic 130–184; BP diastolic 72–83; PULSE 63–89; TEMP 36.6–37.3; O2SAT 90–96
[2018-04-10] MEDS: METOPROLOL TARTRATE 1 MG/ML VIAL IV PRN ×2 (00:17→12:15)
[2018-04-10] MEDS: ARTIFICIAL TEARS OP SOLN OPB SCH ×3 (08:35→21:41)
[2018-04-10] MEDS: METOPROLOL TARTRATE 25 MG TAB PO SCH ×2 (08:36→21:38)
[2018-04-10] MEDS: AZATHIOPRINE 50 MG TAB PO SCH (08:36)
[2018-04-10] MEDS: LISINOPRIL 2.5 MG TAB PO SCH (08:36)
[2018-04-10] MEDS: ASCORBIC ACID 500 MG TAB PO SCH (08:36)
[2018-04-10] MEDS: HYDROCHLOROTHIAZIDE 25 MG TAB PO SCH (08:38)
[2018-04-10] MEDS: ENOXAPARIN 40 MG/0.4 ML SYR SC SCH (08:38)
[2018-04-10] MEDS ORDERED: FUROSEMIDE 20 MG TAB PO ONE (09:45)
--- NOTE | 2018-04-10 15:10 | DIAGNOSTIC IMAGING REPORT ---
VIDEO SWALLOW STUDY CLINICAL HISTORY: Hoarse voice. Aspiration. COMPARISON STUDY: No priors. Fluoroscopy time: 2.5 minutes. FINDINGS: Fluoroscopic guidance was provided to the Department of Speech Pathology performing a video swallow study. The patient consumed barium-impregnated pudding, cracker with paste, and thin barium while the swallowing mechanism was observed in real-time. No penetration or aspiration was seen with any of the sampled textures. Esophageal dysmotility was observed. IMPRESSION: 1. No penetration or aspiration was seen with any of the sampled textures. 2. Esophageal dysmotility. 3. See dedicated speech pathology report for detailed findings and recommendations. Dictated: 04/10/2018 3:04 PM Transcribed: 04/10/2018 3:10 PM Raúl Electronically signed by: Isaiah Ham M.D. 04/10/2018 3:13 PM Dictated Date/Time: 04/10/2018 3:04 PM
--- NOTE | 2018-04-10 16:56 | Progress Note ---
Subjective Date of Service: Apr 10, 2018. Subjective Pt evaluation today including: conversation w/ patient, conversation w/ family , physical exam, chart review, lab review, review of studies, conversation w/ rn lactation consultant, review of inpatient medication list Voiding: no voiding problems 69 chair, pleasant conversational, Problem List Medical Problems: (1) Abdominal aortic aneurysm (AAA) Status: Acute (2) Carotid artery stenosis Status: Acute (3) Celiac artery stenosis Status: Acute (4) CHF (congestive heart failure) Status: Acute (5) SMA stenosis Status: Acute (6) SOB (shortness of breath) Status: Acute Review of Systems Constitutional: + weakness, + fatigue, No fever, No chills, No sweats, No weight loss, No problem reported Eyes: No worsening of vision, No eye pain, No redness, No discharge, No diplopia ENT: No hearing loss, No unusual epistaxis, No nasal symptoms, No sore throat, No tinnitus, No dental problems, No trouble swallowing Respiratory: No cough, No sputum, No wheezing, No shortness of breath, No dyspnea on exertion, No dyspnea at rest, No hemoptysis Cardiac: No chest pain, No orthopnea, No PND, No edema, No claudication, No palpitations Abdomen: No pain, No nausea, No vomiting, No diarrhea, No constipation Musculoskeletal: No joint pain, No muscle pain, No swelling, No calf pain Female : No dysuria, No urinary frequency, No hematuria, No incontinence, No abnormal vaginal bleeding, No vaginal discharge Neurologic: No memory loss, No paralysis, No weakness, No numbness/tingling, No vertigo, No balance problems Psychiatric: No depression symptoms, No anhedonism, No anxiety, No insomnia, No substance abuse Heme: No abnormal bleeding/bruising, No clotting problems, No swollen lymph nodes, No night sweats Endo: No fatigue, No excessive thirst, No excessive urination Skin: No rash, No itch, No new/changing skin lesions, No color change, No bleeding Objective Vital Signs Date Time Temp Pulse Resp B/P (MAP) Pulse Ox O2 Delivery O2 Flow Rate FiO2 04/10/18 16:00 Room Air 04/10/18 15:19 37.0 79 16 163/73 (103) 94 Room Air 04/10/18 12:15 74 167/75 04/10/18 12:00 Room Air 04/10/18 11:15 36.6 74 20 167/75 (105) 96 Room Air 04/10/18 11:08 91 04/10/18 08:00 Room Air 04/10/18 07:27 36.7 87 20 172/78 (109) 93 Room Air 184/73 (110) 04/10/18 04:06 37.1 82 16 175/74 (107) 96 Room Air 04/10/18 04:03 90 Room Air 04/10/18 00:40 90 Room Air 04/10/18 00:37 37.3 89 17 184/83 (116) 95 Room Air 04/10/18 00:17 89 184/86 04/09/18 20:00 90 Room Air 04/09/18 19:23 36.4 90 18 133/63 (86) 90 Room Air Physical Exam General Appearance: WD/WN, no apparent distress Eyes: normal inspection, PERRL, EOMI, sclerae normal ENT: normal ENT inspection, hearing grossly normal, pharynx normal Neck: supple, no adenopathy, thyroid normal, no JVD, no carotid bruits, trachea midline Respiratory/Chest: chest non-tender, lungs clear, normal breath sounds, no respiratory distress, no accessory muscle use, + crackles (Right lower lung) Cardiovascular: regular rate, rhythm, no edema, no gallop, no JVD, no murmur, + systolic murmur Abdomen: normal bowel sounds, non tender, soft, no organomegaly, no pulsatile mass Extremities: normal range of motion, non-tender, normal inspection, no pedal edema, no calf tenderness, normal capillary refill, pelvis stable Neurologic/Psychiatric: renewals manager II-XII nml as tested, no motor/sensory deficits, alert, normal mood/affect, oriented x 3 Skin: normal color, warm/dry, no rash Lymphatic: no adenopathy Laboratory Results Last 24 Hours Test 04/09/18 21:58 Troponin I 0.080 ng/ml Assessment and Plan 87-F was admitted on April 08, 2018 with acute systolic heart failure and hypertensive urgency, also found to have 4.1 cm aortic aneurysm with concern for ulceration, 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 Shortness of breath: Multifactorial, like narcisa from combined acute systolic heart failure with chronic respiratory failure CTA chest did not show any PE but was suggestive of cystic lung disease. Last echocardiogram in July 2016 noted EF of 45-50% with grade 1 diastolic dysfunction, repeat echo cont diuresis with iv lasix, albuterol prn and supplemental oxygen to keep Sp02 over 92%. Abnormal ECG , not associated with chest pain, with mild troponin elevation which has been trends down Aortic lesion: CT of the chest noted a 4.1 x 3.5 cm saccular outpouching of the proximal abdominal aorta We will continue watch and hypertensive control Hoarseness with difficulty in swallowing lunch, speech evaluation , and video evaluation, will follow up Incidental findings in CTA of the neck notes moderate plaque in the bilateral internal carotid arteries without significant stenosis as well as 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 Hypertension: Continue metoprolol tartrate 25 mg p.o. twice daily, Continue home lisinopril and hydrochlorthiazide Rheumatoid arthritis: Continue home Imuran and prednisone, watch for need for stress dosing. Code status: Full code DVT prophy: Lovenox and SCDs Discussed with patient answered all questions Continued [facility] stay due to: multiple IV medications needed Discharge planning: home
[2018-04-10] MEDS: TRAMADOL HCL 50 MG TAB PO PRN (21:38)
[2018-04-11] VITALS (8 sets, daily range): BP systolic 106–164; BP diastolic 54–67; PULSE 50–69; TEMP 36.3–36.9; O2SAT 94–97
[2018-04-11 07:48] LABS: CALCIUM 8.5 mg/dl (8.5-10.1); CREATININE 0.95 mg/dl (0.60-1.20); PHOSPHORUS 3.8 mg/dl (2.5-4.9); POTASSIUM 3.5 mmol/L (3.5-5.1)
[2018-04-11] MEDS ORDERED: LPR25 PO (07:57)
[2018-04-11] MEDS ORDERED: LSX20 PO (07:57)
--- NOTE | 2018-04-11 07:57 | Discharge Instructions ---
Discharge Instructions Date of Service Apr 12, 2018. Admission Reason for Admission: Abd. Aortic Aneurysm, Shortness Of Breath Discharge Discharge Diagnosis / Problem: acute systolic heart failure and hypertensive urgency, Discharge Goals Goal(s): Decrease discomfort, Improve function, Increase independence, Improve disease control, Improve nutritional status, Learn about illness, Diagnostic testing, Therapeutic intervention, Prevent Disease Progression, Specific goals Activity Recommendations Activity Limitations: resume your previous activity . Instructions / Follow-Up Instructions / Follow-Up you have acute systolic heart failure and hypertensive urgency you also found to have 4.1 cm aortic aneurysm with concern for ulceration and interstitial lung disease on CT you need to continue watch and hypertensive control by your PCP you have Hoarseness with difficulty in swallowing: recommend: FULLY UPRIGHT for all oral intake and for 30 minutes after meals Alternate solids and liquids 1:1 during meals Keep head of bed elevated AT LEAST 30-degrees at ALL times--even sleep Choose foods that are moist, loose, slippery; Avoid foods that are dry, doughy (soft bread, etc.), thick; use condiments as needed to make foods slippery you have Incidental findings in CTA of the neck notes moderate plaque in the bilateral internal carotid arteries without significant stenosis as well as 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 please follow up with pcp about this too Continue metoprolol tartrate 25 mg p.o. twice daily, Continue home lisinopril and but discontinue Hydrochlorthiazide lasix is your new med - you need to follow up with your primary care physician in 1 week, - take medication as instructed, never overdose or any misuse, or take with alcohol, because misuse of medicine may cause organ damage or , call me , or your primary care physician if have questions of discharge medicaitons. - call your primary care physician, or go to local emergency room if has any fever/chill, chest pain, shortness of breathing, nausea/vomiting/abdominal pain , facial droop/slurry speech/local weakness, or if has any questions. - fall precaution - diet as instructed Call your Primary Care doctor if any of the following symptoms or problems start or get worse: * Shortness of breath or difficulty breathing * Wake up at night short of breath * Chest pain * Cough * Swelling of your hands, feet, or legs * More fatigued or tired with your normal activity * Palpitations - sudden fast heart beats WEIGHT * Weigh yourself every morning after using the bathroom. * Use the same scale. * Wear the same amount of clothing. * Write your weight down on a chart. * Call your Primary Care doctor if you gain more than 2-3 pounds in 1-2 days. MEDICATIONS * Use this discharge instruction sheet for medication instructions. * Take your medications at the time your doctor ordered. * Do not skip a dose of your medicines. * If you miss a dose of medicine, take it as soon as possible, but DO NOT DOUBLE A DOSE. * Read your medicine information when you get home. * Know all of the side effects of your medicine. If in doubt, ask your pharmacist * Call your Primary Care doctor's office if you have any side effects. * Be sure all of your doctors know what medicine and herbs you take (including cold, flu, and herbal medicine). Take the following with you to your follow-up doctor appointments: * Weight Chart * Medication List * List of questions Do not drink excessive alcohol, beer or wine. Current Hospital Diet Patient's current hospital diet: Regular Diet Discharge Diet Recommended Diet: AHA Diet (Heart Healthy), Low Sodium Diet (2gm Na) Pending Studies Studies pending at discharge: no Laboratory Results Meds Administered (Past 24Hrs) Medications (Trade) Dose Ordered Sig/Radha Route Start Time Stop Time Status Last Admin Dose Admin Ascorbic Acid (Vitamin C Tab) 500 mg DAILY PO 04/09/18 09:00 05/09/18 08:59 04/10/18 08:36 500 MG Azathioprine (Imuran Tab) 25 mg DAILY PO 04/09/18 09:00 05/09/18 08:59 04/10/18 08:36 25 MG Hydrochlorothiazide (Hydrochlorothiazide Tab) 25 mg DAILY PO 04/09/18 09:00 05/09/18 08:59 04/10/18 08:38 25 MG Lisinopril (Zestril Tab) 2.5 mg DAILY PO 04/09/18 09:00 05/09/18 08:59 04/10/18 08:36 2.5 MG Artificial Tears (Artificial Tears) 1 drops TID OPB 04/09/18 09:00 05/09/18 08:59 04/10/18 21:41 1 DROPS Enoxaparin Sodium (Lovenox Inj) 40 mg Q24H SC 04/09/18 09:00 05/09/18 08:59 04/10/18 08:38 40 MG Metoprolol Tartrate (Lopressor Tab) 25 mg BID PO 04/09/18 09:00 05/09/18 08:59 04/10/18 21:38 25 MG Prednisone (PredniSONE TAB) 20 mg DAILY PO 04/09/18 09:00 05/09/18 08:59 04/10/18 08:36 20 MG Furosemide (Lasix Tab) 20 mg 0945 ONCE PO 04/10/18 09:45 04/10/18 09:46 DC 04/10/18 10:19 20 MG Medical Emergencies . Who to Call and When: Call 911 or go to the Emergency Room if: * If at any time you feel your situation is an emergency * You have tightness or pain in your chest that does not go away with rest or Nitroglycerin * You are very short of breath even with rest . Non-Emergent Contact Non-Emergency issues call your: Primary Care Provider . . "Provider Documentation" section prepared by Berry Gee. .
[2018-04-11] MEDS: ARTIFICIAL TEARS OP SOLN OPB SCH ×3 (08:24→20:14)
[2018-04-11] MEDS: TRAMADOL HCL 50 MG TAB PO PRN ×2 (08:24→20:55)
[2018-04-11] MEDS: LISINOPRIL 2.5 MG TAB PO SCH (08:25)
[2018-04-11] MEDS: FUROSEMIDE 20 MG TAB PO SCH (08:25)
[2018-04-11] MEDS: AZATHIOPRINE 50 MG TAB PO SCH (08:25)
[2018-04-11] MEDS: HYDROCHLOROTHIAZIDE 25 MG TAB PO SCH (08:25)
[2018-04-11] MEDS: ASCORBIC ACID 500 MG TAB PO SCH (08:26)
[2018-04-11] MEDS: METOPROLOL TARTRATE 25 MG TAB PO SCH ×2 (08:26→20:14)
[2018-04-11] MEDS: ENOXAPARIN 40 MG/0.4 ML SYR SC SCH (08:27)
[2018-04-11] MEDS ORDERED: NURSING VERBAL MED ORDER ONE (09:15)
[2018-04-11] MEDS ORDERED: FUROSEMIDE INJ 10 MG in SYRINGE 0 ML IV SCH (09:30)
--- NOTE | 2018-04-11 09:46 | DIAGNOSTIC IMAGING REPORT ---
TWO VIEW CHEST CLINICAL HISTORY: Dyspnea. Crackles on physical examination. FINDINGS: AP and lateral chest radiographs are compared to chest x-ray and chest CT dated 04/08/2018. The AP view is degraded by patient rotation. The heart is enlarged and there is atherosclerotic calcification of the thoracic aorta. The pulmonary vasculature is noncongested. Diffuse chronic interstitial thickening and reticulation is similar to previous and likely related to chronic interstitial lung disease. There is no evidence of superimposed airspace consolidation and no large pleural effusion is identified. Left basilar opacities are unchanged and consistent with scarring/atelectasis. There is no pneumothorax. The skeletal structures are osteopenic. Multiple compression deformities are noted in the lower thoracic and upper lumbar spine. Advanced arthritic change is seen in the shoulders. IMPRESSION: 1. Cardiomegaly without radiographic evidence of congestive failure. 2. Changes of chronic interstitial lung disease are similar to previous. 3. There is no evidence of superimposed airspace consolidation or pleural effusion. Electronically signed by: Isaiah Ham M.D. 04/11/2018 9:45 AM Dictated Date/Time: 04/11/2018 9:42 AM
[2018-04-11] MEDS ORDERED: ASPIRIN 81 MG ECTAB PO STA (17:22)
--- NOTE | 2018-04-11 17:24 | Progress Note ---
Subjective Date of Service: Apr 11, 2018. Subjective Pt evaluation today including: conversation w/ patient, physical exam, chart review, lab review, review of studies, review of inpatient medication list Nurse reported patient has mild labored breathing this morning, associated with some moist cough, patient confirmed of knees, she is generally feeling okay Problem List Medical Problems: (1) Abdominal aortic aneurysm (AAA) Status: Acute (2) Carotid artery stenosis Status: Acute (3) Celiac artery stenosis Status: Acute (4) CHF (congestive heart failure) Status: Acute (5) SMA stenosis Status: Acute (6) SOB (shortness of breath) Status: Acute Review of Systems Constitutional: + weakness, + fatigue, No fever, No chills, No sweats, No weight loss, No problem reported Eyes: No worsening of vision, No eye pain, No redness, No discharge, No diplopia ENT: No hearing loss, No unusual epistaxis, No nasal symptoms, No sore throat, No tinnitus, No dental problems, No trouble swallowing Respiratory: + cough, No sputum, No wheezing, No shortness of breath, No dyspnea on exertion, No dyspnea at rest, No hemoptysis Cardiac: No chest pain, No orthopnea, No PND, No edema, No claudication, No palpitations Abdomen: No pain, No nausea, No vomiting, No diarrhea, No constipation Musculoskeletal: No joint pain, No muscle pain, No swelling, No calf pain Female : No dysuria, No urinary frequency, No hematuria, No incontinence, No abnormal vaginal bleeding, No vaginal discharge Neurologic: No memory loss, No paralysis, No weakness, No numbness/tingling, No vertigo, No balance problems Psychiatric: No depression symptoms, No anhedonism, No anxiety, No insomnia, No substance abuse Heme: No abnormal bleeding/bruising, No clotting problems, No swollen lymph nodes, No night sweats Endo: No fatigue, No excessive thirst, No excessive urination Skin: No rash, No itch, No new/changing skin lesions, No color change, No bleeding Objective Vital Signs Date Time Temp Pulse Resp B/P (MAP) Pulse Ox O2 Delivery O2 Flow Rate FiO2 04/11/18 15:38 36.9 64 18 164/64 (97) 96 Room Air 04/11/18 12:00 Room Air 04/11/18 11:19 36.4 50 20 118/55 (76) 96 Room Air 04/11/18 09:16 36.3 63 20 106/65 (79) 96 Room Air 04/11/18 08:00 Room Air 04/11/18 04:10 Room Air 04/11/18 04:00 36.7 63 18 131/60 (83) 94 Room Air 04/11/18 00:00 96 Room Air 04/10/18 23:31 36.6 63 18 130/72 (91) 96 Room Air 04/10/18 20:00 94 Room Air 04/10/18 19:16 36.8 84 16 136/75 (95) 94 Room Air Physical Exam General Appearance: WD/WN, no apparent distress Eyes: normal inspection, PERRL, EOMI, sclerae normal ENT: normal ENT inspection, hearing grossly normal, pharynx normal Neck: supple, no adenopathy, thyroid normal, no JVD, no carotid bruits, trachea midline Respiratory/Chest: chest non-tender, normal breath sounds, no respiratory distress, no accessory muscle use, + crackles (Bilateral lower lung crackles left > right) Cardiovascular: regular rate, rhythm, no edema, no gallop, no JVD, no murmur Abdomen: normal bowel sounds, non tender, soft, no organomegaly, no pulsatile mass Extremities: normal range of motion, non-tender, normal inspection, no pedal edema, no calf tenderness, normal capillary refill, pelvis stable, + pertinent finding (Significant hands and fingers deformity because of rheumatoid arthritis which is not new) Neurologic/Psychiatric: swatch folder II-XII nml as tested, no motor/sensory deficits, alert, normal mood/affect, oriented x 3, + abnormal cerebellar tests Skin: normal color, warm/dry, no rash Lymphatic: no adenopathy Laboratory Results Last 24 Hours Test 04/11/18 06:50 Sodium Level 133 mmol/L Potassium Level 3.5 mmol/L Chloride Level 95 mmol/L Carbon Dioxide Level 31 mmol/L Anion Gap 7.0 mmol/L Blood Urea Nitrogen 39 mg/dl Creatinine 0.95 mg/dl Est Creatinine Clear Calc Drug Dose 32.4 ml/min Estimated GFR () 62.0 Estimated GFR (Non- 53.5 BUN/Creatinine Ratio 40.6 Random Glucose 81 mg/dl Calcium Level 8.5 mg/dl Phosphorus Level 3.8 mg/dl Magnesium Level 1.7 mg/dl Assessment and Plan 87-F was admitted on April 08, 2018 with acute systolic heart failure and hypertensive urgency, also found to have 4.1 cm aortic aneurysm with concern for ulceration, 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 Shortness of breath: Likely from combined acute systolic and diastolic heart failure CTA chest did not show any PE but was suggestive of cystic lung disease. Last echocardiogram in July 2016 noted EF of 45-50% with grade 1 diastolic dysfunction, repeat echo cont diuresis with iv lasix, albuterol prn and supplemental oxygen to keep Sp02 over 92%. Abnormal ECG , not associated with chest pain, with mild troponin elevation which has been trends down Aortic lesion: CT of the chest noted a 4.1 x 3.5 cm saccular outpouching of the proximal abdominal aorta Discussed with patient about this, continue to watch and hypertensive control Hoarseness with difficulty in swallowing video evaluation which was unremarkable speech evaluation was done, and recommendation: FULLY UPRIGHT for all oral intake and for 30 minutes after meals Alternate solids and liquids 1:1 during meals Keep head of bed elevated AT LEAST 30-degrees at ALL times--even sleep Choose foods that are moist, loose, slippery; Avoid foods that are dry, doughy (soft bread, etc.), thick; use condiments as needed to make foods slippery Incidental findings in CTA of the neck notes moderate plaque in the bilateral internal carotid arteries without significant stenosis as well as 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 Continue to watch, will start aspirin, check fasting lipid panel, status stating if needed, patient is on beta-albert Hypertension: Continue metoprolol tartrate 25 mg p.o. twice daily, Continue home lisinopril and hydrochlorthiazide Rheumatoid arthritis: Continue home Imuran and prednisone, stable Code status: Full code DVT prophy: Lovenox and SCDs Discussed with patient answered all questions Possible discharge patient home tomorrow Continued [facility] stay due to: multiple IV medications needed Discharge planning: home
[2018-04-11] MEDS ORDERED: MAGNESIUM SULFATE 1GM / D5W 100 ML IV ONE (17:30)
--- NOTE | 2018-04-11 18:35 | ECHOCARDIOGRAM REPORT ---
*NOTICE TO RECEIVING LIBERTARIAN AGENCY This information is strictly Confidential and protected under [place] law. [place] law prohibits you from making any further disclosure of this information unless further disclosure is expressly permitted by the written consent of the person to whom it pertains or is authorized by law. A general authorization for the release of medical or other information is not sufficient for this purpose. Hospital accepts no responsibility if the information is made available to any other person, INCLUDING THE PATIENT. Interpretation Summary * Name: MARIZA FRY Study Date: 04/11/2018 07:05 AM BP: 131/60 mmHg * Patient Location: C.2T\S\S242\S\1 HR: 63 * : 1930 (M/d/yyy) Gender: Female Height: 62 in * Age: 87 yrs Ethnicity: CA Weight: 126 lb * Ordering Physician: Berry Gee * [facility] * Performed By: Josiah Emmanuel RCS * * Reason For Study: Murmurs * BSA: 1.6 m2 * -- Conclusions -- * 1. Normal left ventricular size with low-normal systolic function. Estimated EF 50-55%. Akinesis of the basal inferior wall, basal septum, basal lateral wall, and inferolateral wall segments. Hypokinesis of the mid lateral wall. No significant left ventricular hypertrophy. Type 1 diastolic dysfunction. * 2. Mild aortic regurgitation. * 3. There is mild mitral regurgitation. * 4. There is moderate mitral annular calcification. * 5. Mildly elevated right ventricular systolic pressure; 46mmHg. * 6. Compared to prior study on 07/29/2016, RVSP is now mildly elevated. Wall motion is similar. Procedure Details * A complete two-dimensional transthoracic echocardiogram was performed (2D, M-mode, Doppler and color flow Doppler). Right Ventricle * The right ventricle is normal in size and function. * The right ventricular systolic function is normal as assessed by tricuspid annular plane systolic excursion (TAPSE) (normal >1.5 cm). Atria * Borderline left atrial enlargement. * Right atrial size is normal. * There is no evidence of atrial septal defect, but resolution does not allow assessment for a patent foramen ovale. Mitral Valve * There is moderate mitral annular calcification. * There is no mitral valve stenosis. * There is mild mitral regurgitation. Tricuspid Valve * The tricuspid valve is not well visualized, but is grossly normal. * There is no tricuspid stenosis. * There is trace tricuspid regurgitation. Aortic Valve * The aortic valve is trileaflet. * No hemodynamically significant valvular aortic stenosis. * Mild aortic regurgitation. Pulmonic Valve * The pulmonary valve is inadequately visualized, but the Doppler data is adequate for interpretation. * There is no pulmonic valvular stenosis. * Mild pulmonic valvular regurgitation. Great Vessels * The aortic root is normal size. Pericardium/Pleural * There is no pericardial effusion. Great Vessels * Normal inferior vena cava size and collapsability with sniff indicates a normal right atrial pressure of 3 mmHg MMode 2D Measurements and Calculations IVSd 1.1 cm IVSs 1.2 cm LVIDd 5.0 cm LVIDs 3.9 cm LVPWd 0.93 cm LVPWs 0.78 cm IVS/LVPW 1.2 FS 22.8 % EDV(Teich) 117.6 ml ESV(Teich) 64.0 ml EF(Teich) 45.5 % EDV(cubed) 124.1 ml ESV(cubed) 57.2 ml EF(cubed) 53.9 % % IVS thick 6.8 % % LVPW thick -16.16 % LV mass(C)d 190.2 grams LV mass(C)dI 121.1 grams/m\S\2 LV mass(C)s 119.8 grams LV mass(C)sI 76.2 grams/m\S\2 SV(Teich) 53.5 ml SI(Teich) 34.1 ml/m\S\2 SV(cubed) 66.9 ml SI(cubed) 42.6 ml/m\S\2 Ao root diam 3.3 cm Ao root area 8.8 cm\S\2 ACS 1.9 cm LA dimension 3.6 cm asc Aorta Diam 3.0 cm LA/Ao 1.1 LVAd ap4 33.0 cm\S\2 LVLd ap4 7.8 cm EDV(MOD-sp4) 117.5 ml EDV(sp4-el) 118.1 ml LVAs ap4 21.8 cm\S\2 LVLs ap4 6.9 cm ESV(MOD-sp4) 64.5 ml ESV(sp4-el) 58.5 ml EF(MOD-sp4) 45.1 % EF(sp4-el) 50.5 % LVAd ap2 29.2 cm\S\2 LVLd ap2 8.1 cm EDV(MOD-sp2) 89.7 ml EDV(sp2-el) 89.0 ml LVAs ap2 17.2 cm\S\2 LVLs ap2 7.0 cm ESV(MOD-sp2) 37.4 ml ESV(sp2-el) 35.8 ml EF(MOD-sp2) 58.3 % EF(sp2-el) 59.8 % LVLd %diff 3.7 % EDV(MOD-bp) 102.2 ml LVLs %diff 1.6 % ESV(MOD-bp) 48.5 ml EF(MOD-bp) 52.5 % SV(MOD-sp4) 53.0 ml SI(MOD-sp4) 33.7 ml/m\S\2 SV(MOD-sp2) 52.3 ml SI(MOD-sp2) 33.3 ml/m\S\2 SV(MOD-bp) 53.7 ml SI(MOD-bp) 34.2 ml/m\S\2 SV(sp4-el) 59.7 ml SI(sp4-el) 38.0 ml/m\S\2 SV(sp2-el) 53.2 ml SI(sp2-el) 33.8 ml/m\S\2 Doppler Measurements and Calculations MV E max zoraida 76.7 cm/sec MV A max zoraida 104.8 cm/sec MV E/A 0.73 MV P1/2t max zoraida 78.1 cm/sec MV P1/2t 106.9 msec MVA(P1/2t) 2.1 cm\S\2 MV dec slope 213.8 cm/sec\S\2 MV dec time 0.35 sec Ao V2 max 115.4 cm/sec Ao max PG 5.3 mmHg Ao max PG (full) 4.0 mmHg AI max zoraida 325.7 cm/sec AI max PG 42.6 mmHg AI dec slope 177.1 cm/sec\S\2 AI P1/2t 538.7 msec LV V1 max PG 1.4 mmHg LV V1 max 58.2 cm/sec PA V2 max 78.6 cm/sec PA max PG 2.5 mmHg PI max zoraida 192.2 cm/sec PI max PG 14.8 mmHg PI dec slope 157.7 cm/sec\S\2 PI P1/2t 356.9 msec TR max zoraida 328.6 cm/sec RVSP(TR) 46.2 mmHg RAP systole 3.0 mmHg
[2018-04-11] MEDS: MAGNESIUM OXIDE 400 MG TAB PO SCH (20:14)
[2018-04-12] VITALS: O2SAT 96
[2018-04-12 04:16] VITALS: BP 136/66; PULSE 68; TEMP 36.4; O2SAT 97
[2018-04-12 07:01] VITALS: BP 121/81; PULSE 75; TEMP 36.6; O2SAT 100
[2018-04-12 07:04] VITALS: BP 146/68; PULSE 69; TEMP 36.6; O2SAT 95
[2018-04-12] MEDS: METOPROLOL TARTRATE 25 MG TAB PO SCH (07:43)
[2018-04-12] MEDS: FUROSEMIDE 20 MG TAB PO SCH (07:43)
[2018-04-12] MEDS: LISINOPRIL 2.5 MG TAB PO SCH (07:44)
[2018-04-12] MEDS: ASCORBIC ACID 500 MG TAB PO SCH (07:44)
[2018-04-12] MEDS: HYDROCHLOROTHIAZIDE 25 MG TAB PO SCH (07:44)
[2018-04-12] MEDS: MAGNESIUM OXIDE 400 MG TAB PO SCH (07:44)
[2018-04-12] MEDS: ENOXAPARIN 40 MG/0.4 ML SYR SC SCH (07:45)
[2018-04-12] MEDS: AZATHIOPRINE 50 MG TAB PO SCH (07:46)
[2018-04-12] MEDS: ARTIFICIAL TEARS OP SOLN OPB SCH ×2 (07:47→14:17)
[2018-04-12] MEDS ORDERED: FUROSEMIDE 20 MG TAB PO ONE (08:30)
[2018-04-12] MEDS ORDERED: ASPIRIN 81 MG ECTAB PO SCH (09:00)
[2018-04-12 09:03] LABS: CALCIUM 8.5 mg/dl (8.5-10.1); CREATININE 1.16 mg/dl (0.60-1.20); PHOSPHORUS 3.6 mg/dl (2.5-4.9); POTASSIUM 3.6 mmol/L (3.5-5.1)
[2018-04-12 11:50] VITALS: BP 121/73; PULSE 60; TEMP 36.6; O2SAT 94
[2018-04-12] MEDS ORDERED: MGNO400 PO (12:41)
[2018-04-12] MEDS ORDERED: ASPI-461 PO (12:41)
--- NOTE | 2018-04-12 12:55 | Discharge Summary ---
Discharge Summary Date of Service Apr 12, 2018. Discharge Summary Admission Date: Apr 08, 2018 at 22:10 Discharge Date: Apr 11, 2018 Discharge Disposition: Personal care Principal Diagnosis: acute diastolic heart failure and hypertensive urgency Problems/Secondary Diagnoses: hypertensive urgency 4.1 cm aortic aneurysm with concern for ulceration and interstitial lung disease Hoarseness with difficulty in swallowing: Immunizations: Have You Had Influenza Vaccine: Yes Influenza Vaccine Date: Jul 31, 2013 History of Tetanus Vaccine?: Yes Tetanus Immunization Date: Jul 31, 2013 History of Pneumococcal: Yes History of Hepatitis B Vaccine: No Procedures: No Consultations: No Medication Reconciliation New Medications: Aspirin (Aspirin) 81 Mg Tab 81 MG PO QAM for 30 Days, #30 TAB Furosemide (Furosemide) 20 Mg Tab 20 MG PO QAM for 30 Days, #30 TAB Magnesium Oxide (Magnesium-Oxide) 400 Mg Tab 400 MG PO BID for 30 Days, #60 TAB Metoprolol Tartrate (Lopressor) 25 Mg Tab 25 MG PO BID for 30 Days, #60 TAB Continued Medications: Acetaminophen (Tylenol) 325 Mg Tab 650 MG PO Q4H PRN for Pain or Fever, TAB MAX APAP 24HRS = 3GM Ascorbic Acid (Ascorbic Acid) 500 Mg Tab 500 MG PO DAILY, TAB Azathioprine (Imuran) 50 Mg Tab 25 MG PO DAILY TAKE HALF OF A 50MG TABLET DAILY AFTER BREAKFAST. Calcium Carbonate (Tums) 500 Mg Chew 500 MG PO QID PRN for Indigestion Carbamide Peroxide (Otic) (Debrox) 6.5 % Karin 5 DROPS OT PRN/UD, ML Lisinopril (Zestril) 2.5 Mg Tab 2.5 MG PO DAILY Polyethylene Glycol-Propylene (Systane) 1 Karin Karin 1 DROPS OPB TID, ML Prednisone (Prednisone) 10 Mg Tab 10 MG PO DAILY, TAB Tramadol (Ultram) 50 Mg Tab 50 MG PO Q6H PRN for Pain, TAB Discontinued Medications: Hydrochlorothiazide (Hctz) 25 Mg Tab 25 MG PO DAILY, TAB Discharge Exam Sitting in chair, conversational, pleasant, doing well, Review of Systems: Constitutional: + weakness, + fatigue, No fever, No chills, No sweats, No weight loss, No problem reported Eyes: No worsening of vision, No eye pain, No redness, No discharge, No diplopia, No problem reported ENT: No hearing loss, No unusual epistaxis, No nasal symptoms, No sore throat, No tinnitus, No dental problems, No trouble swallowing, No problem reported Respiratory: No cough, No sputum, No wheezing, No shortness of breath, No dyspnea on exertion, No dyspnea at rest, No hemoptysis, No problem reported Cardiovascular: + edema (Trace edema), No chest pain, No orthopnea, No PND, No claudication, No palpitations, No problem reported Abdomen: No pain, No nausea, No vomiting, No diarrhea, No constipation, No GI bleeding, No problem reported Musculoskeletal: + problem reported (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 rheumatoid arthritis), No joint pain, No muscle pain, No swelling, No calf pain Genitourinary - Female: No dysuria, No urinary frequency, No urinary urgency , No urinary incontinence, No urinary retention, No hematuria, No dysmenorrhea, No menorrhagia, No metrorrhagia, No rash, No vaginal bleeding, No vaginal discharge, No vaginal itching, No vulvodynia, No , No problem reported Neurologic: No memory loss, No paralysis, No weakness, No numbness/tingling , No vertigo, No balance problems, No problem reported Psychiatric: No depression symptoms, No anhedonism, No anxiety, No insomnia , No substance abuse, No problem reported Endocrine: No fatigue, No excessive thirst, No excessive urination, No problem reported Hematologic / Lymphatic: No abnormal bleeding/bruising, No clotting problems , No swollen lymph nodes, No night sweats, No problem reported Integumentary: No rash, No itch, No new/changing skin lesions, No color change, No bleeding, No problem reported Physical Exam: General Appearance: WD/WN, no apparent distress Eyes: normal inspection, PERRL ENT: normal ENT inspection, hearing grossly normal Neck: supple, no adenopathy, thyroid normal Respiratory/Chest: chest non-tender, + decreased breath sounds, + crackles ( Bilateral lower lungs fine crackles is better than yesterday) Cardiovascular: regular rate, rhythm, no gallop, no JVD Abdomen / GI: normal bowel sounds, non tender, soft Extremities: normal inspection, no calf tenderness, + swelling (Trace edema) Neurologic/Psychiatric: 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, no motor/sensory deficits , alert, normal mood/affect, normal reflexes, oriented x 3 Skin: normal color, warm/dry, no rash Hospital Course 87-F was admitted on April 08, 2018 with acute systolic heart failure and hypertensive urgency, also found to have 4.1 cm aortic aneurysm with concern for ulceration, 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 Shortness of breath: Resolved Likely from combined acute systolic and diastolic heart failure CTA chest did not show any PE but was suggestive of cystic lung disease. Last echocardiogram in July 2016 noted EF of 45-50% with grade 1 diastolic dysfunction, repeat echo cont diuresis, he has been with iv lasix, albuterol prn and supplemental oxygen to keep Sp02 over 92%. 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 Discussed with patient about this, continue to watch and hypertensive control Hoarseness with difficulty in swallowing video evaluation which was unremarkable speech evaluation was done, and recommendation: FULLY UPRIGHT for all oral intake and for 30 minutes after meals Alternate solids and liquids 1:1 during meals Keep head of bed elevated AT LEAST 30-degrees at ALL times--even sleep Choose foods that are moist, loose, slippery; Avoid foods that are dry, doughy (soft bread, etc.), thick; use condiments as needed to make foods slippery Incidental findings in CTA of the neck notes moderate plaque in the bilateral internal carotid arteries without significant stenosis as well as 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 Continue to watch, will start aspirin, check fasting lipid panel, status stating if needed, patient is on beta-albert Hypertension: Continue metoprolol tartrate 25 mg p.o. twice daily, Continue home lisinopril and discontinue hydrochlorthiazide she will going home with oral Lasix 20 mg p.o. daily PCP need to check labs in a follow-up visit to make sure BMP magnesium is normal Rheumatoid arthritis: Continue home Imuran and prednisone, stable Code status: Full code DVT prophy: Lovenox and SCDs Discussed with patient answered all questions Possible discharge patient home Instructions / Follow-Up you have acute systolic heart failure and hypertensive urgency you also found to have 4.1 cm aortic aneurysm with concern for ulceration and interstitial lung disease on CT you need to continue watch and hypertensive control by your PCP you have Hoarseness with difficulty in swallowing: recommend: FULLY UPRIGHT for all oral intake and for 30 minutes after meals Alternate solids and liquids 1:1 during meals Keep head of bed elevated AT LEAST 30-degrees at ALL times--even sleep Choose foods that are moist, loose, slippery; Avoid foods that are dry, doughy (soft bread, etc.), thick; use condiments as needed to make foods slippery you have Incidental findings in CTA of the neck notes moderate plaque in the bilateral internal carotid arteries without significant stenosis as well as 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 please follow up with pcp about this too Continue metoprolol tartrate 25 mg p.o. twice daily, Continue home lisinopril and but discontinue Hydrochlorthiazide lasix is your new med - you need to follow up with your primary care physician in 1 week, - take medication as instructed, never overdose or any misuse, or take with alcohol, because misuse of medicine may cause organ damage or , call me , or your primary care physician if have questions of discharge medicaitons. - call your primary care physician, or go to local emergency room if has any fever/chill, chest pain, shortness of breathing, nausea/vomiting/abdominal pain , facial droop/slurry speech/local weakness, or if has any questions. - fall precaution - diet as instructed Total Time Spent: Greater than 30 minutes This includes examination of the patient, discharge planning, medication reconciliation, and communication with other providers. Discharge Instructions Please refer to the electronic Patient Visit Report (Discharge Instructions) for additional information. Additional Copies To [facility]
[2018-04-12 14:07] VITALS: BP 121/73; PULSE 60; TEMP 36.6; O2SAT 94
[2018-04-13] MEDS ORDERED: FUROSEMIDE 40 MG TAB PO SCH (09:00)
[2018-04-13] MEDS ORDERED: ENOXAPARIN 30 MG/0.3 ML SYR SC SCH (09:00)
--- NOTE | 2018-04-17 08:03 | EDITING REQUIRED CODING QUERY ---
CONGESTIVE HEART FAILURE To Promote full compliance with coding requirements relating to patient care, physician participation is requested in all cases of invasive physician uncertainty. Please assist us with the following questions. A diagnosis of Congestive Heart Failure is documented in the patient's medical record. To accurately code this diagnosis and to compare patient severity, we ask that you specify the type of heart failure by placing an X within the parenthesis (x). SYSTOLIC HEART FAILURE ( ) Acute ( ) Chronic (x ) Acute on Chronic ( ) Rheumatic ( ) Unknown DIASTOLIC HEART FAILURE ( ) Acute ( ) Chronic ( x) Acute on Chronic ( ) Rheumatic ( ) Unknown COMBINED SYSTOLIC AND DIASTOLIC HEART FAILURE ( ) Acute ( ) Chronic (x ) Acute on Chronic ( ) Rheumatic ( ) Unknown Was the CHF Present On Admission? Please check the appropriate box: (x ) Present on Admission ( ) Not Present On Admission ( ) Clinically undetermined Thank you Cristiana Montano
== END 2018-04-12 15:25 | DRG 292 ==
LOC: EDBD 16:34 → C.EDC 16:35 → C.2T 22:10 → ENRESERV 22:22
PROVIDERS: ADMIT Hospitalist; ATTEND Hospitalist
DX: I11.0 Hypertensive heart disease with heart failure (principal); E87.1 Hypo-osmolality and hyponatremia; J84.9 Interstitial pulmonary disease, unspecified; I50.43 Acute on chronic combined systolic (congestive) and diastolic (congestive) heart failure; I16.0 Hypertensive urgency; J98.4 Other disorders of lung; T50.2X5A Adverse effect of carbonic-anhydrase inhibitors, benzothiadiazides and other diuretics, initial encounter; T50.1X5A Adverse effect of loop [high-ceiling] diuretics, initial encounter; R94.31 Abnormal electrocardiogram [ECG] [EKG]; R79.89 Other specified abnormal findings of blood chemistry; I71.4 Abdominal aortic aneurysm, without rupture; R49.0 Dysphonia; R13.10 Dysphagia, unspecified; I65.23 Occlusion and stenosis of bilateral carotid arteries; I67.2 Cerebral atherosclerosis; M06.9 Rheumatoid arthritis, unspecified; I73.9 Peripheral vascular disease, unspecified; Z90.49 Acquired absence of other specified parts of digestive tract; Z79.52 Long term (current) use of systemic steroids; Z79.899 Other long term (current) drug therapy; Z88.1 Allergy status to other antibiotic agents

== ENCOUNTER 2019-02-08 06:06 | Inpatient (IN) ==
--- OUTSIDE RECORDS SUMMARY | 2019-02-08 06:10 | External Medical Summary | Continuity of Care Document ---
:1930 Author Name Maria Eugenia Josue, Provider Address Unavailable Unavailable , Care Team Providers Name Role Phone Cat Ray [email or web address] Eugenio Josue, [email or web address] Caicedo Unavailable Unavailable Unavailable Unavailable Unavailable Problems Iliotibial band syndrome (728.89) (M76.30) High risk medication use (V58.69) (Z79.899) Interstitial lung disease (515) (J84.9) Rheumatoid arthritis (714.0) (M06.9) Lower back pain (724.2) (M54.5) Hypertension (401.9) (I10) PAD (peripheral artery disease) (443.9) (I73.9) Allergies and Adverse Reactions Erythromycin Derivatives (Allergy) Medications predniSONE 5 MG Oral Tablet; 1 tab qd Liat Ray art: 12-Jan-2011 Quantity: 90 Refills: 3 azaTHIOprine 50 MG Oral Tablet; TAKE 0.5 TABLET Daily Josiah Ray Start: 12-Jan-2011 Quantity: 45 Refills: 3 hydroCHLOROthiazide 25 MG Oral Tablet; TAKE 1 TABLET DAILY. Quantity: 90 Refills: 3 Lisinopril 2.5 MG Oral Tablet; TAKE 1 TABLET DAILY. Quantity: 90 Refills: 3 Vitamin C TABS; Take 1 tablet daily Refills: 0 Systane SOLN Refills: 0 traMADol HCl - 50 MG Oral Tablet; TAKE 1 TABLET EVERY 6 HOURS NEEDED FOR PAIN. Refills: 0 Tylenol 325 MG Oral Tablet; TAKE 2 TABLET Every 4 hours PRN Refills: 0 Tums 500 MG Oral Tablet Chewable; TAKE DIRECTED. Refills: 0 Procedures History of Cholecystectomy Laparoscopic Status: Completed History of Cataract Surgery Status: Comp leted History of Total Knee Arthroplasty Statu s: Completed Immunizations Adacel 5-2-15.5 LF-MCG/0.5 Intramuscular Suspension On: 10:23 Lot #: [id number], [employer] Zoster (Zostavax) On: 12-Jul-2012 14:20 Lot #: [id number], [employer] Social History - Smoking Status Never smoker Plan of Treatment Planned Observations Planned Goals not documented Results No Known Results Results not documented Encounters Appointment; Vascular, Studies [facility] [place] 01-Dec-2017 13:00 Encounter Diagnosis: Problem not documented Appointment; Brody Becker M.D. 28-Nov-2017 9:00 Encounter Diagnosis: Problem not documented Appointment; Vascular, Studies [facility] [place] 26-Aug-2017 10:15 Encounter Diagnosis: Problem not documented
--- NOTE | 2019-02-08 06:33 | Emergency Department Note ---
Entered by Kymberly Dudley acting as a scribe for Mika Wiggins DO History of Present Illness General Chief complaint: Leg Injury/Pain Stated complaint: POSSIBLE LEG INFECTION Source: patient History of Present Illness Provider complaint: low extremity pain and redness Onset (ago): hour(s) (today) Location: lower extremity, left and right Pain Consistency: + constant Maximum Pain Intensity: 8 Quality: + other (pain and redness) Associated symptoms: no fever/chills and no shortness of breath The patient is an 88-year-old female who presented to the emergency department by ambulance for an evaluation of lower extremity pain and redness. The patient was started on antibiotics for the last 4 days for lower extremity swelling and lower extremity redness. The patient has very severe pain especially in her buttocks as well as her left heel. She states the pain is been constant and has been very severe. She denies having any fever. She denies having any shortness of breath that is worse than usual. She was placed on oxygen last evening [facility]. The patient was seen in our facility at the beginning of the year for very similar complaints. At that time she was started on Zosyn and vancomycin. She also had a PICC line placed and had antibiotic treatment. She has a history of rheumatoid arthritis and is currently taking immune modulators. She denies having any recent falls. She denies having any chest pain nausea or vomiting. She states that the pain is worsened with any movement. She also has severe shortness of breath with lying flat. The patient was seen by the physician at the facility where she lives. That is how she was started on the antibiotics. She is currently taking Omnicef. Home Medications Home Medications Medication Instructions Recorded Confirmed Type Roxanol 20mg/Ml 1 dose PO UD PRN 10/31/18 02/08/19 History Systane (PF) 2 drp OPHTHALMIC (EYE) BID 10/31/18 02/08/19 History acetaminophen [Tylenol] 650 mg PO TID 10/31/18 02/08/19 History albuterol sulfate 1 unit INHALATION Q4 PRN 10/31/18 02/08/19 History furosemide [Lasix] 20 mg PO DAILY 10/31/18 02/08/19 History lidocaine [Lidoderm] 1 patch TOPICAL DAILY PRN 10/31/18 02/08/19 History omeprazole 20 mg PO BID 10/31/18 02/08/19 History prednisone 10 mg PO DAILY 10/31/18 02/08/19 History cefdinir 300 mg PO DAILY #14 cap 11/03/18 02/08/19 Rx azathioprine [Imuran] 25 mg PO DAILY 02/08/19 02/08/19 History polyethylene glycol 3350 [Miralax] 17 g PO DAILY PRN 02/08/19 02/08/19 History sodium chloride [Saline Mist] 2 spray INTRANASAL QID PRN 02/08/19 02/08/19 History tramadol 50 mg PO Q6H PRN 02/08/19 02/08/19 History white petrolatum-mineral oil 1 applic OPHTHALMIC (EYE) TID PRN 02/08/19 02/08/19 History [Soothe Night Time Lubricant] Allergies Allergy/AdvReac Type Severity Reaction Status Date / Time erythromycin base AdvReac Mild upset Verified 02/08/19 06:40 stomach Past Med/Surg History Medical History Rheumatoid arthritis (Chronic) Hypertension (Chronic) Ileus (Acute) PAD (peripheral artery disease) AAA (abdominal aortic aneurysm) Cataract Diastolic CHF ILD (interstitial lung disease) Surgical History Hx of cholecystectomy (Chronic) History of right knee surgery Family History Other Rheumatoid arthritis Social History Preferred Language: Lebanese Communication Ability: Effective 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 and A total of 10 systems reviewed and were otherwise negative Physical Exam Vital Signs Vital Signs - 24 hr 02/08/19 06:17 02/08/19 06:56 02/08/19 07:27 Temperature 36.8 C Temperature Source Oral Sepsis Recent Fever Within 48 Hours No Sepsis Action Taken by Nursing No Action Required Pulse Rate 88 Pulse Rate [Apical] 83 Pulse Rate [Finger] Pulse Rhythm Regular Pulse Rhythm [Apical] Pulse Strength Normal Pulse Strength [Apical] Respiratory Rate 18 20 Respiratory Effort / Characteristics Non-Labored Spontaneous Non-Labored Respiratory Depth Normal Normal Respiratory Pattern Regular Regular Blood Pressure 166/75 H Blood Pressure [Left Arm] Blood Pressure [Right Arm] 134/53 L Blood Pressure Mean 105 Blood Pressure Mean [Left Arm] Blood Pressure Mean [Right Arm] 80 Blood Pressure Position [Left Arm] Blood Pressure Position [Right Arm] Pulse Oximetry 95 95 94 Oxygen Delivery Method Room Air Room Air Room Air Oxygen Flow Rate 02/08/19 07:30 02/08/19 09:24 02/08/19 10:49 Temperature Temperature Source Sepsis Recent Fever Within 48 Hours Sepsis Action Taken by Nursing Pulse Rate Pulse Rate [Apical] 82 Pulse Rate [Finger] Pulse Rhythm Pulse Rhythm [Apical] Pulse Strength Pulse Strength [Apical] Respiratory Rate 24 Respiratory Effort / Characteristics Respiratory Depth Respiratory Pattern Blood Pressure Blood Pressure [Left Arm] Blood Pressure [Right Arm] 134/53 L 137/57 L Blood Pressure Mean Blood Pressure Mean [Left Arm] Blood Pressure Mean [Right Arm] 80 83 Blood Pressure Position [Left Arm] Blood Pressure Position [Right Arm] Sitting Pulse Oximetry 100 98 Oxygen Delivery Method Nasal Cannula Nasal Cannula Room Air Oxygen Flow Rate 3 2 02/08/19 11:10 02/08/19 11:25 02/08/19 14:20 Temperature 37.1 C Temperature Source Oral Sepsis Recent Fever Within 48 Hours Sepsis Action Taken by Nursing Pulse Rate 79 73 Pulse Rate [Apical] 86 Pulse Rate [Finger] Pulse Rhythm Pulse Rhythm [Apical] Regular Pulse Strength Pulse Strength [Apical] Normal Respiratory Rate 18 Respiratory Effort / Characteristics Non-Labored Spontaneous Respiratory Depth Normal Respiratory Pattern Regular Blood Pressure Blood Pressure [Left Arm] 141/61 H Blood Pressure [Right Arm] Blood Pressure Mean Blood Pressure Mean [Left Arm] 87 Blood Pressure Mean [Right Arm] Blood Pressure Position [Left Arm] Lying Blood Pressure Position [Right Arm] Pulse Oximetry 100 Oxygen Delivery Method Nasal Cannula Oxygen Flow Rate 3 02/08/19 15:26 Temperature 36.6 C Temperature Source Oral Sepsis Recent Fever Within 48 Hours Sepsis Action Taken by Nursing Pulse Rate Pulse Rate [Apical] Pulse Rate [Finger] 70 Pulse Rhythm Pulse Rhythm [Apical] Pulse Strength Pulse Strength [Apical] Respiratory Rate 18 Respiratory Effort / Characteristics Non-Labored Respiratory Depth Normal Respiratory Pattern Blood Pressure Blood Pressure [Left Arm] 133/64 Blood Pressure [Right Arm] Blood Pressure Mean Blood Pressure Mean [Left Arm] 87 Blood Pressure Mean [Right Arm] Blood Pressure Position [Left Arm] Lying Blood Pressure Position [Right Arm] Pulse Oximetry 100 Oxygen Delivery Method Nasal Cannula Oxygen Flow Rate 3 GENERAL: The patient is awake and alert. She is very anxious appearing and appears to be uncomfortable. EYES: The conjunctivae are clear. The pupils are round and reactive. EARS, NOSE, MOUTH AND THROAT: The nose is without any evidence of any deformity. Mucous membranes are moist tongue is midline NECK: The neck is nontender and supple. RESPIRATORY: Shallow respirations were noted. There are rales noted throughout in both lung zendejas. Mild conversational dyspnea was appreciated. CARDIOVASCULAR: Ectopy was noted to auscultation but no definite murmur was appreciated. GASTROINTESTINAL: The abdomen is soft. Bowel sounds are present in all quadrants. Abdomen is nontender MUSCULOSKELETAL/EXTREMITIES: There is no evidence of gross deformity full range of motion is noted in the hips and shoulders SKIN: There is a area of erythema and pressure ulceration over the sacrum. There is a paced noted with skin breakdown and mild active bleeding noted. There is severe erythema noted to both lower extremities right greater than left. There are bullae noted some of which have ruptured especially a large one in the left calf and a large one in the right calf. There is also a bullae no sixto on the right lateral lower extremity. There is severe tenderness to the left heel with bogginess to the left heel. Erythema involves an area from the right leg which extends from the knee circumferentially distally involving the entire right foot. NEUROLOGIC: Patient is awake alert and oriented x3. Course 0620: The patient was evaluated in room B6. A history and physical were performed. 0934: I discussed the patient's case with Dr. Mercedes Armstrong who will evaluate the patient for further management. 0937: I updated the patient who verbalized agreement and understanding of the treatment plan. Consultations Consultation #1: Dr. Mercedes Armstrong Time: 09:34 Administered Medications Acetaminophen (Tylenol) 650 mg PO DAILY@0800,1400,2000 DANA Stop: 03/10/19 13:59 Last Admin: 02/08/19 13:13 Dose: 650 mg Documented by: [id number] Piperacillin Sod/Tazobactam (Sod 3.375 gm/ Dextrose) 115 mls @ 28.75 mls/hr IV Q8H [facility]; Protocol Stop: 02/18/19 13:59 Last Admin: 02/08/19 13:43 Dose: 28.8 mls/hr Documented by: [id number] Morphine Sulfate (Morphine Sulfate) 2 mg IV Q15M PRN PRN Reason: Pain Stop: 02/22/19 09:35 Last Admin: 02/08/19 09:44 Dose: 2 mg Documented by: [id number] Discontinued Medications Vancomycin HCl 1,250 mg/ (Sodium Chloride) 525 mls @ 200 mls/hr IV NOW ONE; Protocol Stop: 02/08/19 10:27 Last Infusion: 02/08/19 12:42 Dose: 0 mls/hr Documented by: [id number] Admin: 02/08/19 09:23 Dose: 200 mls/hr Documented by: [id number] Piperacillin Sod/Tazobactam Sod (Zosyn) 4.5 gm in 120 mls @ 240 mls/hr IV NOW ONE Stop: 02/08/19 08:19 Last Infusion: 02/08/19 08:29 Dose: 0 mls/hr Documented by: [id number] Admin: 02/08/19 07:55 Dose: 240 mls/hr Documented by: [id number] Furosemide 40 mg/ Syringe 4 mls @ 4 mls/min IV ONE ONE Stop: 02/08/19 14:01 Last Admin: 02/08/19 14:12 Dose: 4 mls/min Documented by: [id number] Prednisone (Prednisone) 10 mg PO ONE ONE Stop: 02/08/19 14:59 Last Admin: 02/08/19 16:44 Dose: 10 mg Documented by: [id number] Medical Decision Making Differential Diagnosis Etiologies such as cellulitis, abscess, MRSA infection, dermatitis, drug eruption,necrotizing fasciitis, DVT as well as others were entertained. Medical Records Attestation: I reviewed the patient's medical records. Home Medications Current Medication List: was personally reviewed by me Laboratory Data Attestation: I reviewed the patient's lab results. Result diagrams: 02/08/19 06:45 02/08/19 06:45 Lab Results 05/02/19 05/02/19 05/02/19 Range/Units 06:45 06:45 06:45 WBC 12.83 H (4.8-10.8) K/uL RBC 3.87 L (4.2-5.4) M/uL Hgb 10.0 L (12.0-16.0) g/dL Hct 32.0 L (37-47) % MCV 82.7 (80-100) fL MCH 25.8 (25-34) pg MCHC 31.3 L (32-36) g/dL RDW Std Deviation 51.1 H (36.4-46.3) fL RDW Coeff of Evelyne 16.9 H (11.5-14.5) % Plt Count 282 (130-400) K/uL MPV 9.3 (7.4-10.4) fL Immature Gran % (Auto) 0.5 % Neut % (Auto) 88.4 % Lymph % (Auto) 3.7 % Maury % (Auto) 6.5 % Eos % (Auto) 0.8 % Baso % (Auto) 0.1 % Immature Gran # (Auto) 0.07 H (0.00-0.02) K/uL Neut # (Auto) 11.33 H (1.4-6.5) K/uL Lymph # (Auto) 0.48 L (1.2-3.4) K/uL Maury # (Auto) 0.84 H (0.11-0.59) K/uL Eos # (Auto) 0.10 (0-0.5) K/uL Baso # (Auto) 0.01 (0-0.2) K/uL ESR > 90 H (0-21) mm/hr PT 10.4 (9.0-12.0) Seconds INR 1.0 (0.9-1.1) APTT 25.4 (21.0-31.0) Seconds PTT Ratio 0.9 D-Dimer 1710 H* (0-500) ug/L FEU ABG pH (7.35-7.45) ABG pCO2 (35-46) mmHg ABG pO2 (80-95) mm/Hg ABG HCO3 (19-24) mmol/L ABG O2 Saturation (90-95) % ABG Base Excess (-9-1.8) mEq/L Sergey Test (Pos) Barometric Pressure mm/Hg Oxygen Given Sodium (136-145) mmol/L Potassium (3.5-5.1) mmol/L Chloride (98-107) mmol/L Carbon Dioxide (21-32) mmol/L Anion Gap (3-11) BUN (7-18) mg/dl Creatinine (0.6-1.2) mg/dl Est Cr Clr Drug Dosing ml/min Est GFR ( Amer) Est GFR (Non-Af Amer) BUN/Creatinine Ratio (10-20) Glucose (70-99) mg/dl Lactate (0.4-2.0) mmol/L Calcium (8.5-10.1) mg/dl Magnesium (1.8-2.4) mg/dl Total Bilirubin (0.2-1) mg/dl AST (15-37) U/L ALT (12-78) U/L Alkaline Phosphatase (45-117) U/L Troponin I (0-0.045) ng/ml C-Reactive Protein (0-0.29) mg/dl Total Protein (6.4-8.2) gm/dl Albumin (3.4-5.0) gm/dl Globulin (2.5-4.0) gm/dl Albumin/Globulin Ratio (0.9-2) Procalcitonin (0-0.5) ng/ml Nasal Screen MRSA (PCR) (Negative) 02/08/19 02/08/19 02/08/19 Range/Units 06:45 06:45 06:45 WBC (4.8-10.8) K/uL RBC (4.2-5.4) M/uL Hgb (12.0-16.0) g/dL Hct (37-47) % MCV (80-100) fL MCH (25-34) pg MCHC (32-36) g/dL RDW Std Deviation (36.4-46.3) fL RDW Coeff of Evelyne (11.5-14.5) % Plt Count (130-400) K/uL MPV (7.4-10.4) fL Immature Gran % (Auto) % Neut % (Auto) % Lymph % (Auto) % Maury % (Auto) % Eos % (Auto) % Baso % (Auto) % Immature Gran # (Auto) (0.00-0.02) K/uL Neut # (Auto) (1.4-6.5) K/uL Lymph # (Auto) (1.2-3.4) K/uL Maury # (Auto) (0.11-0.59) K/uL Eos # (Auto) (0-0.5) K/uL Baso # (Auto) (0-0.2) K/uL ESR (0-21) mm/hr PT (9.0-12.0) Seconds INR (0.9-1.1) APTT (21.0-31.0) Seconds PTT Ratio D-Dimer (0-500) ug/L FEU ABG pH (7.35-7.45) ABG pCO2 (35-46) mmHg ABG pO2 (80-95) mm/Hg ABG HCO3 (19-24) mmol/L ABG O2 Saturation (90-95) % ABG Base Excess (-9-1.8) mEq/L Sergey Test (Pos) Barometric Pressure mm/Hg Oxygen Given Sodium 139 (136-145) mmol/L Potassium 4.3 (3.5-5.1) mmol/L Chloride 102 (98-107) mmol/L Carbon Dioxide 31 (21-32) mmol/L Anion Gap 6.0 (3-11) BUN 41 H (7-18) mg/dl Creatinine 0.83 (0.6-1.2) mg/dl Est Cr Clr Drug Dosing 41.1 ml/min Est GFR ( Amer) 72.5 Est GFR (Non-Af Amer) 62.5 BUN/Creatinine Ratio 49.1 H (10-20) Glucose 104 H (70-99) mg/dl Lactate 1.1 (0.4-2.0) mmol/L Calcium 9.2 (8.5-10.1) mg/dl Magnesium 2.5 H (1.8-2.4) mg/dl Total Bilirubin 0.4 (0.2-1) mg/dl AST 15 (15-37) U/L ALT 15 (12-78) U/L Alkaline Phosphatase 78 (45-117) U/L Troponin I 0.267 H* (0-0.045) ng/ml C-Reactive Protein 15.00 H (0-0.29) mg/dl Total Protein 7.3 (6.4-8.2) gm/dl Albumin 2.7 L (3.4-5.0) gm/dl Globulin 4.6 H (2.5-4.0) gm/dl Albumin/Globulin Ratio 0.6 L (0.9-2) Procalcitonin 0.68 H (0-0.5) ng/ml Nasal Screen MRSA (PCR) (Negative) 02/08/19 02/08/19 02/08/19 Range/Units 06:45 12:51 13:20 WBC (4.8-10.8) K/uL RBC (4.2-5.4) M/uL Hgb (12.0-16.0) g/dL Hct (37-47) % MCV (80-100) fL MCH (25-34) pg MCHC (32-36) g/dL RDW Std Deviation (36.4-46.3) fL RDW Coeff of Evelyne (11.5-14.5) % Plt Count (130-400) K/uL MPV (7.4-10.4) fL Immature Gran % (Auto) % Neut % (Auto) % Lymph % (Auto) % Maury % (Auto) % Eos % (Auto) % Baso % (Auto) % Immature Gran # (Auto) (0.00-0.02) K/uL Neut # (Auto) (1.4-6.5) K/uL Lymph # (Auto) (1.2-3.4) K/uL Maury # (Auto) (0.11-0.59) K/uL Eos # (Auto) (0-0.5) K/uL Baso # (Auto) (0-0.2) K/uL ESR (0-21) mm/hr PT (9.0-12.0) Seconds INR (0.9-1.1) APTT (21.0-31.0) Seconds PTT Ratio D-Dimer (0-500) ug/L FEU ABG pH 7.46 H (7.35-7.45) ABG pCO2 46 (35-46) mmHg ABG pO2 56 L (80-95) mm/Hg ABG HCO3 32 H (19-24) mmol/L ABG O2 Saturation 88.4 L (90-95) % ABG Base Excess 6.8 H (-9-1.8) mEq/L Sergey Test Pos (Pos) Barometric Pressure 734.9 mm/Hg Oxygen Given Room Air Sodium (136-145) mmol/L Potassium (3.5-5.1) mmol/L Chloride (98-107) mmol/L Carbon Dioxide (21-32) mmol/L Anion Gap (3-11) BUN (7-18) mg/dl Creatinine (0.6-1.2) mg/dl Est Cr Clr Drug Dosing ml/min Est GFR ( Amer) Est GFR (Non-Af Amer) BUN/Creatinine Ratio (10-20) Glucose (70-99) mg/dl Lactate (0.4-2.0) mmol/L Calcium (8.5-10.1) mg/dl Magnesium (1.8-2.4) mg/dl Total Bilirubin (0.2-1) mg/dl AST (15-37) U/L ALT (12-78) U/L Alkaline Phosphatase (45-117) U/L Troponin I 0.232 H* (0-0.045) ng/ml C-Reactive Protein (0-0.29) mg/dl Total Protein (6.4-8.2) gm/dl Albumin (3.4-5.0) gm/dl Globulin (2.5-4.0) gm/dl Albumin/Globulin Ratio (0.9-2) Procalcitonin (0-0.5) ng/ml Nasal Screen MRSA (PCR) Negative (Negative) Imaging Data Radiologist's Impression: Radiology results as stated below per my review and the radiologist's interpretation: XR chest 1V portable CLINICAL HISTORY: Sepsis dyspnea COMPARISON STUDY: 10/31/2017 FINDINGS: Moderate cardiomegaly. Diaphragms are smooth. Slight fullness the pulmonary vasculature. IMPRESSION: Cardiomegaly. Pulmonary vascular congestion. The above report was generated using voice recognition software. It may contain grammatical, syntax or spelling errors. Electronically signed by: Sam Burrell M.D. 02/08/2019 6:47 AM ULTRASOUND BILATERAL LOWER EXTREMITY VENOUS CLINICAL HISTORY: Lower extremity pain and swelling. COMPARISON STUDY: No priors. TECHNIQUE: Real-time, grayscale, and color Doppler sonography of the deep veins of the right and left lower extremity was performed from the inguinal crease to the calf. Compression and augmentation were utilized. FINDINGS: There is no sonographic evidence of deep venous thrombosis identified in the right or left lower extremity. The common femoral, superficial femoral, and popliteal veins are patent and normally compressible bilaterally. The greater saphenous vein and the profunda femoris vein at the junction with the common femoral vein are clear in both legs. The visualized calf veins are patent bilaterally. IMPRESSION: There is no sonographic evidence of deep venous thrombosis identified in the right or left lower extremity. Electronically signed by: Isaiah Ham M.D. 02/08/2019 9:17 AM ECG Data Attestation: I personally reviewed and interpreted this ECG as follows: Indication: other (leg pain) Rate (beats per minute): 83 Rhythm: sinus rhythm Findings: + PVC (frequent), + Q waves (inferior) and + ST depression (lateral) Comparison ECG Date: from (11/03/18) Change: no significant change Blood Pressure Blood Pressure Findings: Low blood pressure Blood Pressure Disposition: further management by hospitalist JYOTI Narrative The patient is an 88-year-old female who presented to the emergency department with severe pain and redness to her legs. The patient's history and physical exam appear to be consistent with significant cellulitis of the lower extremities which appear to be affecting the right leg worse than the left. She also has significant heel pain. She has a history of cellulitis of her extremities and was treated at the beginning of the year for similar complaints. The patient was treated with pain medication as well as IV antibiotics in the emergency department. I discussed the patient's laboratory and radiographic studies with her. She was reevaluated multiple times. On subsequent reevaluation she was somewhat improved. I discussed her case with the on-call [facility] hospitalist. They have agreed to evaluate the patient in the emergency department for further management and disposition. Impression & Plan Cellulitis, Elevated troponin, Pressure ulcer Discharge Plan Visit Data *Final* Discharge Date/Time: 02/08/19 10:49 Chief Complaint: Leg Injury/Pain Stated Complaint: POSSIBLE LEG INFECTION ED Provider: Mika Wiggins Discharge Problem: Cellulitis, Elevated troponin, Pressure ulcer Patient Disposition: Admitted As Inpatient Discharge Instructions Interventions: ED Discharge Assessment Last Done: 02/08/19 10:49 The scribe's documentation has been prepared under my direction and personally reviewed by me in its entirety. I confirm that the note above accurately reflects all work, treatment, procedures, and medical decision making performed by me.
--- NOTE | 2019-02-08 06:48 | XRay Report ---
XR chest 1V portable CLINICAL HISTORY: Sepsis dyspnea COMPARISON STUDY: 10/31/2017 FINDINGS: Moderate cardiomegaly. Diaphragms are smooth. Slight fullness the pulmonary vasculature. IMPRESSION: Cardiomegaly. Pulmonary vascular congestion. The above report was generated using voice recognition software. It may contain grammatical, syntax or spelling errors. Electronically signed by: Sam Burrell M.D. 02/08/2019 6:47 AM
[2019-02-08 07:08] LABS: Basophils # (auto) 0.01 K/uL (0-0.2); Basophils % (auto) 0.1 %; Eosinophils % (auto) 0.8 %; Immature Granulocytes # (auto) 0.07 K/uL (0.00-0.02); Immature Granulocytes % (auto) 0.5 %; Lymphocytes # (auto) 0.48 K/uL (1.2-3.4); Lymphocytes % (auto) 3.7 %; Mean Corpuscular Hgb Conc 31.3 g/dL (32-36); Mean Corpuscular Volume 82.7 fL (80-100); Mean Platelet Volume 9.3 fL (7.4-10.4); Monocytes # (auto) 0.84 K/uL (0.11-0.59); Monocytes % (auto) 6.5 %; Neutrophils # (auto) 11.33 K/uL (1.4-6.5); Neutrophils % (auto) 88.4 %; Platelet Count 282 K/uL (130-400); RDW Coefficient of Variation 16.9 % (11.5-14.5); RDW Standard Deviation 51.1 fL (36.4-46.3); Red Blood Count 3.87 M/uL (4.2-5.4); White Blood Count 12.83 K/uL (4.8-10.8)
[2019-02-08 07:13] LABS: HCO3 ABG 32 mmol/L (19-24); Oxygen Saturation ABG 88.4 % (90-95); PCO2 ABG 46 mmHg (35-46); PO2 ABG 56 mm/Hg (80-95); pH ABG 7.46 (7.35-7.45)
[2019-02-08 07:23] LABS: Est GFR (African American) 72.5; Potassium 4.3 mmol/L (3.5-5.1)
[2019-02-08 07:24] LABS: Albumin Level 2.7 gm/dl (3.4-5.0); BUN Creatinine Ratio 49.1 (10-20); Calcium 9.2 mg/dl (8.5-10.1); Creatinine Clr Calc Pharmacy 41.1 ml/min; Est GFR (Non-African American) 62.5; Magnesium 2.5 mg/dl (1.8-2.4)
[2019-02-08 07:48] LABS: Albumin Globulin Ratio 0.6 (0.9-2); Bilirubin,Total 0.4 mg/dl (0.2-1); Globulin 4.6 gm/dl (2.5-4.0); Total Protein 7.3 gm/dl (6.4-8.2); Troponin I 0.267 ng/ml (0-0.045)
[2019-02-08] MEDS ORDERED: VANCOMYCIN CONSULT ACTIVE PRN (07:50)
[2019-02-08] MEDS ORDERED: PIPERACILL/TAZOBAC CONSULT ACTIVE PRN (07:50)
[2019-02-08] MEDS ORDERED: VANCOMYCIN HCL 1,250 MG in SODIUM CHLORIDE 0.9% 500 ML IV ONE (07:50)
[2019-02-08] MEDS ORDERED: PIPERACILLIN/TAZOBACTAM 4.5 GM/120 ML BAG IV ONE (07:50)
[2019-02-08 07:51] LABS: Allen Test Pos (Pos); Partial Thromboplastin Ratio 0.9; Partial Thromboplastin Time 25.4 Seconds (21.0-31.0); Prothrombin Time 10.4 Seconds (9.0-12.0)
[2019-02-08 07:54] LABS: D Dimer 1710 ug/L FEU (0-500)
--- NOTE | 2019-02-08 09:18 | Ultrasound Report ---
ULTRASOUND BILATERAL LOWER EXTREMITY VENOUS CLINICAL HISTORY: Lower extremity pain and swelling. COMPARISON STUDY: No priors. TECHNIQUE: Real-time, grayscale, and color Doppler sonography of the deep veins of the right and left lower extremity was performed from the inguinal crease to the calf. Compression and augmentation wer e utilized. FINDINGS: There is no sonographic evidence of deep venous thrombosis identified in the right or left lower extremity. The common femoral, superficial femoral, and popliteal veins are patent and normally compressible bilaterally. The greater saphenous vein and the profunda femoris vein at the junction w ith the common femoral vein are clear in both legs. The visualized calf veins are patent bilaterally. IMPRESSION: There is no sonographic evidence of deep venous thrombosis identified in the right or lef t lower extremity. Electronically signed by: Isaiah Ham M.D. 02/08/2019 9:17 AM
[2019-02-08] MEDS: MoRPHine SULFATE 2 MG/ML CARP IV PRN (09:44)
[2019-02-08] MEDS ORDERED: WHITE PETROLATUM OP PRN (11:25)
[2019-02-08] MEDS ORDERED: [UNRECOGNIZED DRUG - OTHER] OP PRN (11:25)
[2019-02-08] MEDS ORDERED: POLYETHYLENE (MIRALAX) 17 GM PACK PO PRN ×2 (11:25)
[2019-02-08] MEDS ORDERED: SODIUM CHLORIDE 0.65% NA SOLN 45 ML (OCEAN) NAE PRN (11:25)
[2019-02-08] MEDS ORDERED: ONDANSETRON INJ 2 MG/ML 2 ML VIAL IV PRN (11:25)
[2019-02-08] MEDS ORDERED: MoRPHine SULFATE 5 MG/0.25 ML UDP PO PRN (11:25)
[2019-02-08] MEDS ORDERED: ALBUTEROL 0.083% NEBU SOLN 3 ML VIAL INH PRN (11:25)
[2019-02-08] MEDS ORDERED: MINERAL OIL OP PRN (11:25)
[2019-02-08] MEDS ORDERED: NITROGLYCERIN SL 0.4 MG/TAB TAB SL PRN (11:25)
[2019-02-08] MEDS ORDERED: LIDOCAINE 5% 1 PATCH TD PRN (12:00)
--- NOTE | 2019-02-08 12:53 | Pharmacy Report ---
Pharmacy Abx Initial Consult - Date of Service February 08, 2019 - Pharmacy Dosing Scope Date of Consult: 5-2 Consultation requested by: Dr. Strong Pharmacy is consulted to initiate vancomycin and zosyn dosing therapy, order appropriate labs and adjust drug dose/frequency. - Subjective The patient is a 88 year old F admitted on 02/08/19 09:57. - Objective Height: 5 ft 2 in Weight: 57.5 kg Vital Signs (Past 12hrs): Vital Signs Temp Pulse Pulse Resp BP BP BP 02/08/19 11:25 79 02/08/19 11:10 37.1 C 86 18 141/61 H 02/08/19 09:24 82 24 137/57 L 02/08/19 07:30 134/53 L 02/08/19 07:27 83 20 134/53 L 02/08/19 06:56 02/08/19 06:17 36.8 C 88 18 166/75 H Pulse Ox 02/08/19 11:25 02/08/19 11:10 100 02/08/19 09:24 98 02/08/19 07:30 100 02/08/19 07:27 94 02/08/19 06:56 95 02/08/19 06:17 95 Lab Results (24hrs): Laboratory Tests (24 Hours) 02/08/19 02/08/19 02/08/19 06:45 06:45 06:45 WBC Neut # (Auto) ESR > 90 H Creatinine 0.83 Est Cr Clr Drug Dosing 41.1 C-Reactive Protein 15.00 H Procalcitonin 0.68 H 02/08/19 06:45 WBC 12.83 H Neut # (Auto) 11.33 H ESR Creatinine Est Cr Clr Drug Dosing C-Reactive Protein Procalcitonin Micro Results: 02/08/19 06:53 Blood Culture - Pending Blood 02/08/19 06:45 Blood Culture - Pending Blood - Risk Factors for Resistance * Immunocompromised (imuran,prednisone on med rec) * Antimicrobial use within the last 90 days [omnicef listed on med rec] - Assessment & Plan Assessment/Plan: Patient started on vancomycin/zosyn for lower leg cellulitis infection. Previously on abx at home prior to admission, however after 4 days of abx area continued to worsen. Blood cultures x 2 are pending at this time. Vancomycin: * Received loading dose of vancomycin 1250 mg (~22 mg/kg) iv x 1 in the ED this morning * Will start maintenance dose of vancomycin 1000 mg (~17 mg/kg) iv q 24 hrs to achieve an estimated trough ~15 mcg/ml (unclear from notes, if area has abscess/drainage) * Estimated kinetics: t1/2~18 hrs, ke~0.03hr-1, CrCl ~41 ml/min * Will plan to obtain trough in next 2-3 days or sooner if vancomycin continues or if renal function changes Zosyn: * 3.375 gm iv q 8 hrs - appropriate for CrCl >20 ml/min Pharmacy will continue to follow and will adjust dose/frequency as necessary. Thank you.
[2019-02-08] MEDS: ACETAMINOPHEN 325 MG TAB PO SCH ×2 (13:13→21:49)
[2019-02-08] MEDS: PIPERACILLIN/TAZOBACTAM 3.375 GM in DEXTROSE 5% 100 ML IV SCH ×2 (13:43→21:49)
[2019-02-08] MEDS ORDERED: FUROSEMIDE 40 MG in SYRINGE 0 ML IV ONE ×2 (14:00→15:49)
[2019-02-08] MEDS ORDERED: predniSONE 10 MG TABLET PO ONE (14:58)
--- NOTE | 2019-02-08 15:06 | History & Physical Report ---
Date of Service February 08, 2019 History of Present Illness Chief Complaint: LLE erythema and pain Primary Care Provider: [facility] 88yoF with hx of previous RLE cellulitis requiring I&D, prolonged abx Allergies Allergy/AdvReac Type Severity Reaction Status Date / Time erythromycin base AdvReac Mild upset Verified 02/08/19 06:40 stomach Home Medications Home Medications Medication Instructions Recorded Confirmed Type Roxanol 20mg/Ml 1 dose PO UD PRN 10/31/18 02/08/19 History Systane (PF) 2 drp OPHTHALMIC (EYE) BID 10/31/18 02/08/19 History acetaminophen [Tylenol] 650 mg PO TID 10/31/18 02/08/19 History albuterol sulfate 1 unit INHALATION Q4 PRN 10/31/18 02/08/19 History furosemide [Lasix] 20 mg PO DAILY 10/31/18 02/08/19 History lidocaine [Lidoderm] 1 patch TOPICAL DAILY PRN 10/31/18 02/08/19 History omeprazole 20 mg PO BID 10/31/18 02/08/19 History prednisone 10 mg PO DAILY 10/31/18 02/08/19 History cefdinir 300 mg PO DAILY #14 cap 11/03/18 02/08/19 Rx azathioprine [Imuran] 25 mg PO DAILY 02/08/19 02/08/19 History polyethylene glycol 3350 [Miralax] 17 g PO DAILY PRN 02/08/19 02/08/19 History sodium chloride [Saline Mist] 2 spray INTRANASAL QID PRN 02/08/19 02/08/19 History tramadol 50 mg PO Q6H PRN 02/08/19 02/08/19 History white petrolatum-mineral oil 1 applic OPHTHALMIC (EYE) TID PRN 02/08/19 02/08/19 History [Soothe Night Time Lubricant] Past Med/Surg History Medical History Rheumatoid arthritis (Chronic) Hypertension (Chronic) Ileus (Acute) PAD (peripheral artery disease) AAA (abdominal aortic aneurysm) Cataract Diastolic CHF ILD (interstitial lung disease) Surgical History Hx of cholecystectomy (Chronic) History of right knee surgery Family History Other Rheumatoid arthritis Social History Preferred Language: German Communication Ability: Effective Handyman Required: No Beliefs That Will Affect Care: None Current Living Situation: [facility] Current Living Situation Comment: [facility] Other Information That Helps Us Care for You: No Feels Safe at Home: Yes Safety Concerns: Feels Safe At This Time Smoking Status: Never smoker Hx Alcohol Use: Yes Hx Substance Use: No Results & Data Vital Signs (Past 12 Hours) Vital Signs Temp Pulse Pulse Resp BP BP BP 02/08/19 11:25 79 02/08/19 11:10 37.1 C 86 18 141/61 H 02/08/19 09:24 82 24 137/57 L 02/08/19 07:30 134/53 L 02/08/19 07:27 83 20 134/53 L 02/08/19 06:56 02/08/19 06:17 36.8 C 88 18 166/75 H Pulse Ox 02/08/19 11:25 02/08/19 11:10 100 02/08/19 09:24 98 02/08/19 07:30 100 02/08/19 07:27 94 02/08/19 06:56 95 02/08/19 06:17 95
--- NOTE | 2019-02-08 16:22 | Medical Student H&P ---
Date of Service February 08, 2019 Assessment & Plan (1) Elevated troponin: Patient has chronically elevated trop and it appears to be trending down from .267 to .232. Will continue to monitor. (2) Pressure ulcer: Patient appears to be developing stage I pressure ulcers on her heels. Will continue to monitor and consult wound care. (3) Leg wound, left: Healing wound present on the left leg. Will continue to monitor and consult wound care. (4) DVT prophylaxis: Will give heparin 5,000 subq daily instead of q12 due to hx of GI bleed. (5) Acute CHF: Patient given two initial doses of Lasix 40mg to help improve pulmonary edema. -Will continue Lasix and monitor lung exam and CXR for resolution of pulm edema. -Provide albuterol PRN to help with breathing -Continue O2 at 3lpm via NC (6) Cellulitis: Given that patient has recently been admitted to the hospital, is on chronix abx, and resident of a snf facility, there is concern that her RLE cellulitis represents a nosocomial infection. -Vanc/zosyn -Consult wound care -Will hold azathioprine for now (7) Anemia: Latest H/H , which is at or above baseline for this patient. MCV = 82.7. 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 Given hx of GI bleed, will continue to monitor. (8) Rheumatoid arthritis: Will continue patient on her home prednisone. Consider restarting azathioprine in the future as patient recovers from infection. Rheumatoid arthritis location: unspecified site Rheumatoid factor presence: unspecified presence Qualified Code(s): M06.9 - Rheumatoid arthritis, unspecified (9) GI (gastrointestinal bleed): -Protonix 40 mg PO BID -Monitor for signs of blood loss History of Present Illness Chief Complaint: RLE erythema, pain, swelling and drainage Primary Care Provider: [facility] 88 y/o F with hx of CHF, RA (on azathioprine) who was admitted Oct 2018 for LLE cellulitis (requiring I&D; MSSA; treated with vanco via PICC, then transitioned to and still taking cefdinir) presents for 4-7 days of RLE pain/drainage and several days of dyspnea. Right leg pain: Her left leg has been improving since her inpatient treatment back in Oct. She states a procedure was done on her right leg during that inpatient stay as well and that while her left leg has continued to improve since her discharge, her right leg has now developed similar sx. She has had pain in her right leg for "a while" but cannot remember exactly when the pain started. Over the past week she noticed redness and blisters on the lateral aspect of the right leg and then 4 days ago the blisters began to drain. Once the draining started, she felt some relief from the pressure but continued to have pain. When her condition did not improve, her snf facility sent her to the hospital. She is adamant that she would like to avoid a graft on her right leg. She states her left leg has healed well with wound care and "beeswax" and she would like the same care for her right leg. Shortness of breath: Over the last few days, she has also developed severe dyspnea which is worsened with eating or talking. She states that she did not take her Lasix or prednisone his morning and feels her breathing is worsening. Other Hx: Patient also with hx of GI bleed in Jul 2018 secondary to gastric ulcers. Required transfer to tertiary care center due to presence of SMA stenosis and concern for ischemia. 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 Was 3.6 cm in 2014 and found to be 4.3x4.0 cm in 2018. She denies fever, chills, N/V, abd pain. She reports very rare left-sided sharp chest pain. She reports occasional "hot flashes" and feels she bruises easily. Allergies Allergy/AdvReac Type Severity Reaction Status Date / Time erythromycin base AdvReac Mild upset Verified 02/08/19 06:40 stomach Home Medications Home Medications Medication Instructions Recorded Confirmed Type Roxanol 20mg/Ml 1 dose PO UD PRN 10/31/18 02/08/19 History Systane (PF) 2 drp OPHTHALMIC (EYE) BID 10/31/18 02/08/19 History acetaminophen [Tylenol] 650 mg PO TID 10/31/18 02/08/19 History albuterol sulfate 1 unit INHALATION Q4 PRN 10/31/18 02/08/19 History furosemide [Lasix] 20 mg PO DAILY 10/31/18 02/08/19 History lidocaine [Lidoderm] 1 patch TOPICAL DAILY PRN 10/31/18 02/08/19 History omeprazole 20 mg PO BID 10/31/18 02/08/19 History prednisone 10 mg PO DAILY 10/31/18 02/08/19 History cefdinir 300 mg PO DAILY #14 cap 11/03/18 02/08/19 Rx azathioprine [Imuran] 25 mg PO DAILY 02/08/19 02/08/19 History polyethylene glycol 3350 [Miralax] 17 g PO DAILY PRN 02/08/19 02/08/19 History sodium chloride [Saline Mist] 2 spray INTRANASAL QID PRN 02/08/19 02/08/19 History tramadol 50 mg PO Q6H PRN 02/08/19 02/08/19 History white petrolatum-mineral oil 1 applic OPHTHALMIC (EYE) TID PRN 02/08/19 02/08/19 History [Soothe Night Time Lubricant] Past Med/Surg History Medical History Rheumatoid arthritis (Chronic) Hypertension (Chronic) Ileus (Acute) PAD (peripheral artery disease) AAA (abdominal aortic aneurysm) Cataract Diastolic CHF ILD (interstitial lung disease) Surgical History Hx of cholecystectomy (Chronic) History of right knee surgery Family History Other Rheumatoid arthritis Social History Preferred Language: Northern Irish Communication Ability: Effective Manufacturing Technology Analyst Required: No Beliefs That Will Affect Care: None Current Living Situation: [facility] Current Living Situation Comment: [facility] Other Information That Helps Us Care for You: No Feels Safe at Home: Yes Safety Concerns: Feels Safe At This Time Smoking Status: Never smoker Hx Alcohol Use: Yes Hx Substance Use: No Physical Exam Vital Signs (Past 24 Hours): Last Vital Signs Temp 36.6 C 02/08/19 15:26 Pulse 70 02/08/19 15:26 Resp 18 02/08/19 15:26 BP 133/64 02/08/19 15:26 Pulse Ox 100 02/08/19 15:26 Physical Exam: General - elderly woman sitting up in bed, struggling to breathe. Neck - JVD at mid-cricoid level Heart - RRR Respiratory - coarse crackles and diffuse expiratory wheeze. No areas diminished. Abd - abd is distended, tympanic to percussion throughout, mildly tender diffusely but mores in the LUQ. No palpable organomegaly. Some bruising on her right flank and an incisional hernia near the umbilicus. Extremities - Hands and feet with significant deformities. LLE mildly erythematous from the ankle up to the mid-driver, RLE with significant erythema including the entire foot and extending to just below the knee. LLE is slightly warm while RLE is very warm. No tenderness in the LLE, while RLE is exquisitely tender to palpation. Both heals are erythematous and inflamed but with skin intact. A healing wound with some granulation tissue is noted on the lateral aspect of the left leg. Two bullae noted on the lateral aspect of the right leg: one blister is just distal to the knee and is draining, the second blister is further down the leg and is not yet draining. Both are covered loosely with gauze. Results & Data Laboratory Results 02/08/19 02/08/19 02/08/19 Range/Units 16:20 13:20 12:51 WBC (4.8-10.8) K/uL RBC (4.2-5.4) M/uL Hgb (12.0-16.0) g/dL Hct (37-47) % MCV (80-100) fL MCH (25-34) pg MCHC (32-36) g/dL RDW Std Deviation (36.4-46.3) fL RDW Coeff of Evelyne (11.5-14.5) % Plt Count (130-400) K/uL MPV (7.4-10.4) fL Immature Gran % (Auto) % Neut % (Auto) % Lymph % (Auto) % [place] % (Auto) % Eos % (Auto) % Baso % (Auto) % Immature Gran # (Auto) (0.00-0.02) K/uL Neut # (Auto) (1.4-6.5) K/uL Lymph # (Auto) (1.2-3.4) K/uL [place] # (Auto) (0.11-0.59) K/uL Eos # (Auto) (0-0.5) K/uL Baso # (Auto) (0-0.2) K/uL ESR (0-21) mm/hr PT (9.0-12.0) Seconds INR (0.9-1.1) APTT (21.0-31.0) Seconds PTT Ratio D-Dimer (0-500) ug/L FEU ABG pH (7.35-7.45) ABG pCO2 (35-46) mmHg ABG pO2 (80-95) mm/Hg ABG HCO3 (19-24) mmol/L ABG O2 Saturation (90-95) % ABG Base Excess (-9-1.8) mEq/L Sergey Test (Pos) Barometric Pressure mm/Hg Oxygen Given Sodium (136-145) mmol/L Potassium (3.5-5.1) mmol/L Chloride (98-107) mmol/L Carbon Dioxide (21-32) mmol/L Anion Gap (3-11) BUN (7-18) mg/dl Creatinine (0.6-1.2) mg/dl Est Cr Clr Drug Dosing ml/min Est GFR ( Amer) Est GFR (Non-Af Amer) BUN/Creatinine Ratio (10-20) Glucose (70-99) mg/dl Lactate (0.4-2.0) mmol/L Calcium (8.5-10.1) mg/dl Magnesium (1.8-2.4) mg/dl Total Bilirubin (0.2-1) mg/dl AST (15-37) U/L ALT (12-78) U/L Alkaline Phosphatase (45-117) U/L Troponin I 0.232 H* (0-0.045) ng/ml C-Reactive Protein (0-0.29) mg/dl Total Protein (6.4-8.2) gm/dl Albumin (3.4-5.0) gm/dl Globulin (2.5-4.0) gm/dl Albumin/Globulin Ratio (0.9-2) Procalcitonin (0-0.5) ng/ml Urine Color Yellow Urine Appearance Cloudy H (Clear) Urine pH 6.0 (4.5-7.5) Ur Specific [place] 1.021 (1.000-1.030) Urine Protein Trace H (Negative) Urine Glucose (UA) Negative (Negative) Urine Ketones Negative (Negative) Urine Blood Negative (Negative) Urine Nitrite Negative (Negative) Urine Bilirubin Negative (Negative) Urine Urobilinogen Negative (Negative) Ur Leukocyte Esterase 1+ H (Negative) Urine WBC (Auto) 10-30 H (0-5) /hpf Urine RBC (Auto) 0-4 (0-4) /hpf U Hyaline Cast (Auto) 1-5 (0-5) /lpf U Epithel Cells (Auto) >30 H (0-5) /lpf Urine Bacteria (Auto) Negative (Negative) Ur Renal Epithelial Cell 0-5 (0-5) /lpf Urine Yeast Not Reportable Nasal Screen MRSA (PCR) Negative (Negative) 02/08/19 02/08/19 02/08/19 Range/Units 06:45 06:45 06:45 WBC (4.8-10.8) K/uL RBC (4.2-5.4) M/uL Hgb (12.0-16.0) g/dL Hct (37-47) % MCV (80-100) fL MCH (25-34) pg MCHC (32-36) g/dL RDW Std Deviation (36.4-46.3) fL RDW Coeff of Evelyne (11.5-14.5) % Plt Count (130-400) K/uL MPV (7.4-10.4) fL Immature Gran % (Auto) % Neut % (Auto) % Lymph % (Auto) % [place] % (Auto) % Eos % (Auto) % Baso % (Auto) % Immature Gran # (Auto) (0.00-0.02) K/uL Neut # (Auto) (1.4-6.5) K/uL Lymph # (Auto) (1.2-3.4) K/uL [place] # (Auto) (0.11-0.59) K/uL Eos # (Auto) (0-0.5) K/uL Baso # (Auto) (0-0.2) K/uL ESR (0-21) mm/hr PT (9.0-12.0) Seconds INR (0.9-1.1) APTT (21.0-31.0) Seconds PTT Ratio D-Dimer (0-500) ug/L FEU ABG pH 7.46 H (7.35-7.45) ABG pCO2 46 (35-46) mmHg ABG pO2 56 L (80-95) mm/Hg ABG HCO3 32 H (19-24) mmol/L ABG O2 Saturation 88.4 L (90-95) % ABG Base Excess 6.8 H (-9-1.8) mEq/L Sergey Test Pos (Pos) Barometric Pressure 734.9 mm/Hg Oxygen Given Room Air Sodium (136-145) mmol/L Potassium (3.5-5.1) mmol/L Chloride (98-107) mmol/L Carbon Dioxide (21-32) mmol/L Anion Gap (3-11) BUN (7-18) mg/dl Creatinine (0.6-1.2) mg/dl Est Cr Clr Drug Dosing ml/min Est GFR ( Amer) Est GFR (Non-Af Amer) BUN/Creatinine Ratio (10-20) Glucose (70-99) mg/dl Lactate 1.1 (0.4-2.0) mmol/L Calcium (8.5-10.1) mg/dl Magnesium (1.8-2.4) mg/dl Total Bilirubin (0.2-1) mg/dl AST (15-37) U/L ALT (12-78) U/L Alkaline Phosphatase (45-117) U/L Troponin I (0-0.045) ng/ml C-Reactive Protein (0-0.29) mg/dl Total Protein (6.4-8.2) gm/dl Albumin (3.4-5.0) gm/dl Globulin (2.5-4.0) gm/dl Albumin/Globulin Ratio (0.9-2) Procalcitonin 0.68 H (0-0.5) ng/ml Urine Color Urine Appearance (Clear) Urine pH (4.5-7.5) Ur Specific [place] (1.000-1.030) Urine Protein (Negative) Urine Glucose (UA) (Negative) Urine Ketones (Negative) Urine Blood (Negative) Urine Nitrite (Negative) Urine Bilirubin (Negative) Urine Urobilinogen (Negative) Ur Leukocyte Esterase (Negative) Urine WBC (Auto) (0-5) /hpf Urine RBC (Auto) (0-4) /hpf U Hyaline Cast (Auto) (0-5) /lpf U Epithel Cells (Auto) (0-5) /lpf Urine Bacteria (Auto) (Negative) Ur Renal Epithelial Cell (0-5) /lpf Urine Yeast Nasal Screen MRSA (PCR) (Negative) 02/08/19 02/08/19 02/08/19 Range/Units 06:45 06:45 06:45 WBC (4.8-10.8) K/uL RBC (4.2-5.4) M/uL Hgb (12.0-16.0) g/dL Hct (37-47) % MCV (80-100) fL MCH (25-34) pg MCHC (32-36) g/dL RDW Std Deviation (36.4-46.3) fL RDW Coeff of Evelyne (11.5-14.5) % Plt Count (130-400) K/uL MPV (7.4-10.4) fL Immature Gran % (Auto) % Neut % (Auto) % Lymph % (Auto) % [place] % (Auto) % Eos % (Auto) % Baso % (Auto) % Immature Gran # (Auto) (0.00-0.02) K/uL Neut # (Auto) (1.4-6.5) K/uL Lymph # (Auto) (1.2-3.4) K/uL [place] # (Auto) (0.11-0.59) K/uL Eos # (Auto) (0-0.5) K/uL Baso # (Auto) (0-0.2) K/uL ESR > 90 H (0-21) mm/hr PT 10.4 (9.0-12.0) Seconds INR 1.0 (0.9-1.1) APTT 25.4 (21.0-31.0) Seconds PTT Ratio 0.9 D-Dimer 1710 H* (0-500) ug/L FEU ABG pH (7.35-7.45) ABG pCO2 (35-46) mmHg ABG pO2 (80-95) mm/Hg ABG HCO3 (19-24) mmol/L ABG O2 Saturation (90-95) % ABG Base Excess (-9-1.8) mEq/L Sergey Test (Pos) Barometric Pressure mm/Hg Oxygen Given Sodium 139 (136-145) mmol/L Potassium 4.3 (3.5-5.1) mmol/L Chloride 102 (98-107) mmol/L Carbon Dioxide 31 (21-32) mmol/L Anion Gap 6.0 (3-11) BUN 41 H (7-18) mg/dl Creatinine 0.83 (0.6-1.2) mg/dl Est Cr Clr Drug Dosing 41.1 ml/min Est GFR ( Amer) 72.5 Est GFR (Non-Af Amer) 62.5 BUN/Creatinine Ratio 49.1 H (10-20) Glucose 104 H (70-99) mg/dl Lactate (0.4-2.0) mmol/L Calcium 9.2 (8.5-10.1) mg/dl Magnesium 2.5 H (1.8-2.4) mg/dl Total Bilirubin 0.4 (0.2-1) mg/dl AST 15 (15-37) U/L ALT 15 (12-78) U/L Alkaline Phosphatase 78 (45-117) U/L Troponin I 0.267 H* (0-0.045) ng/ml C-Reactive Protein 15.00 H (0-0.29) mg/dl Total Protein 7.3 (6.4-8.2) gm/dl Albumin 2.7 L (3.4-5.0) gm/dl Globulin 4.6 H (2.5-4.0) gm/dl Albumin/Globulin Ratio 0.6 L (0.9-2) Procalcitonin (0-0.5) ng/ml Urine Color Urine Appearance (Clear) Urine pH (4.5-7.5) Ur Specific [place] (1.000-1.030) Urine Protein (Negative) Urine Glucose (UA) (Negative) Urine Ketones (Negative) Urine Blood (Negative) Urine Nitrite (Negative) Urine Bilirubin (Negative) Urine Urobilinogen (Negative) Ur Leukocyte Esterase (Negative) Urine WBC (Auto) (0-5) /hpf Urine RBC (Auto) (0-4) /hpf U Hyaline Cast (Auto) (0-5) /lpf U Epithel Cells (Auto) (0-5) /lpf Urine Bacteria (Auto) (Negative) Ur Renal Epithelial Cell (0-5) /lpf Urine Yeast Nasal Screen MRSA (PCR) (Negative) 02/08/19 Range/Units 06:45 WBC 12.83 H (4.8-10.8) K/uL RBC 3.87 L (4.2-5.4) M/uL Hgb 10.0 L (12.0-16.0) g/dL Hct 32.0 L (37-47) % MCV 82.7 (80-100) fL MCH 25.8 (25-34) pg MCHC 31.3 L (32-36) g/dL RDW Std Deviation 51.1 H (36.4-46.3) fL RDW Coeff of Evelyne 16.9 H (11.5-14.5) % Plt Count 282 (130-400) K/uL MPV 9.3 (7.4-10.4) fL Immature Gran % (Auto) 0.5 % Neut % (Auto) 88.4 % Lymph % (Auto) 3.7 % [place] % (Auto) 6.5 % Eos % (Auto) 0.8 % Baso % (Auto) 0.1 % Immature Gran # (Auto) 0.07 H (0.00-0.02) K/uL Neut # (Auto) 11.33 H (1.4-6.5) K/uL Lymph # (Auto) 0.48 L (1.2-3.4) K/uL [place] # (Auto) 0.84 H (0.11-0.59) K/uL Eos # (Auto) 0.10 (0-0.5) K/uL Baso # (Auto) 0.01 (0-0.2) K/uL ESR (0-21) mm/hr PT (9.0-12.0) Seconds INR (0.9-1.1) APTT (21.0-31.0) Seconds PTT Ratio D-Dimer (0-500) ug/L FEU ABG pH (7.35-7.45) ABG pCO2 (35-46) mmHg ABG pO2 (80-95) mm/Hg ABG HCO3 (19-24) mmol/L ABG O2 Saturation (90-95) % ABG Base Excess (-9-1.8) mEq/L Sergey Test (Pos) Barometric Pressure mm/Hg Oxygen Given Sodium (136-145) mmol/L Potassium (3.5-5.1) mmol/L Chloride (98-107) mmol/L Carbon Dioxide (21-32) mmol/L Anion Gap (3-11) BUN (7-18) mg/dl Creatinine (0.6-1.2) mg/dl Est Cr Clr Drug Dosing ml/min Est GFR ( Amer) Est GFR (Non-Af Amer) BUN/Creatinine Ratio (10-20) Glucose (70-99) mg/dl Lactate (0.4-2.0) mmol/L Calcium (8.5-10.1) mg/dl Magnesium (1.8-2.4) mg/dl Total Bilirubin (0.2-1) mg/dl AST (15-37) U/L ALT (12-78) U/L Alkaline Phosphatase (45-117) U/L Troponin I (0-0.045) ng/ml C-Reactive Protein (0-0.29) mg/dl Total Protein (6.4-8.2) gm/dl Albumin (3.4-5.0) gm/dl Globulin (2.5-4.0) gm/dl Albumin/Globulin Ratio (0.9-2) Procalcitonin (0-0.5) ng/ml Urine Color Urine Appearance (Clear) Urine pH (4.5-7.5) Ur Specific [place] (1.000-1.030) Urine Protein (Negative) Urine Glucose (UA) (Negative) Urine Ketones (Negative) Urine Blood (Negative) Urine Nitrite (Negative) Urine Bilirubin (Negative) Urine Urobilinogen (Negative) Ur Leukocyte Esterase (Negative) Urine WBC (Auto) (0-5) /hpf Urine RBC (Auto) (0-4) /hpf U Hyaline Cast (Auto) (0-5) /lpf U Epithel Cells (Auto) (0-5) /lpf Urine Bacteria (Auto) (Negative) Ur Renal Epithelial Cell (0-5) /lpf Urine Yeast Nasal Screen MRSA (PCR) (Negative) Medications Administered Current Inpatient Medications Acetaminophen (Tylenol) 650 mg PO DAILY@0800,1400,1999 DANA Stop: 03/10/19 13:59 Last Admin: 02/08/19 13:13 Dose: 650 mg Documented by: Albuterol (Ventolin 0.083% 2.5mg/3ml) 1 mg INH Q4R PRN PRN Reason: Shortness Of Breath Stop: 03/10/19 11:24 Artificial Tears (Artificial Tears) 2 drops OP BID COUNT INCLUDES THE [facility] Stop: 03/10/19 20:59 Azathioprine (Imuran) 25 mg PO DAILY@0830 COUNT INCLUDES THE [facility] Stop: 03/11/19 08:29 Enoxaparin Sodium (Lovenox) 40 mg SQ Q24H DANA Stop: 03/10/19 21:59 Furosemide (Lasix) 20 mg PO DAILY COUNT INCLUDES THE [facility] Stop: 03/11/19 08:59 Heparin Sodium (Porcine) (Heparin Sodium (Porcine)) 5,000 units SQ DAILY COUNT INCLUDES THE [facility] Stop: 03/11/19 08:59 Piperacillin Sod/Tazobactam (Sod 3.375 gm/ Dextrose) 115 mls @ 28.75 mls/hr IV Q8H COUNT INCLUDES THE [facility]; Protocol Stop: 02/18/19 13:59 Last Infusion: 02/08/19 17:15 Dose: Infused Documented by: Vancomycin HCl 1,000 mg/ (Sodium Chloride) 270 mls @ 125 mls/hr IV Q24H COUNT INCLUDES THE [facility] Stop: 02/19/19 07:59 Lidocaine (Lidoderm 5%) 1 patch TD DAILY PRN PRN Reason: Pain Stop: 03/10/19 11:59 Metoprolol Tartrate (Lopressor) 12.5 mg PO BID COUNT INCLUDES THE [facility] Stop: 03/10/19 20:59 Miscellaneous (Remove Lidoderm Patch) 1 ea N/A DAILY@2100 COUNT INCLUDES THE [facility] Stop: 03/10/19 20:59 Miscellaneous Information (Consult) 1 ea N/A UD PRN PRN Reason: Consult Stop: 03/10/19 07:49 Miscellaneous Information (Consult) 1 ea N/A UD PRN PRN Reason: Consult Stop: 03/10/19 07:49 Morphine Sulfate (Morphine Sulfate) 2 mg IV Q15M PRN PRN Reason: Pain Stop: 02/22/19 09:35 Last Admin: 02/08/19 09:44 Dose: 2 mg Documented by: Morphine Sulfate (Roxanol) 5 mg PO Q6H PRN PRN Reason: Pain Stop: 02/22/19 11:24 Nitroglycerin (Nitrostat) 0.4 mg SL UD PRN PRN Reason: Chest Pain Stop: 03/10/19 11:24 Ondansetron HCl (Zofran) 4 mg IV Q6H PRN PRN Reason: Nausea Stop: 03/10/19 11:24 Pantoprazole Sodium (Protonix) 40 mg PO BID DANA Stop: 03/10/19 20:59 Polyethylene Glycol (Miralax Powder Packet) 17 gm PO DAILY PRN PRN Reason: Constipation Stop: 03/10/19 11:24 Prednisone (Prednisone) 10 mg PO DAILY DANA Stop: 03/11/19 08:59 Sodium Chloride ([place] Nasal) 2 sprays DEE QID PRN PRN Reason: dryness Stop: 03/10/19 11:24 Tramadol HCl (Ultram) 50 mg PO Q6H PRN PRN Reason: Pain Stop: 03/10/19 11:24 Code Status & VTE Plan Code Status DNR/DNI Had long discussion with patient and she does not want compressions or intubation. VTE Prophylaxis Plan VTE Prophylaxis will be ordered: Yes Supervising Attestation I personally examined the patient and verified all jolly points of history and exam, discussed case, and agree with decision making with Martell Lutz MS2. Right leg swollen and painful. Feels very similar to when of her left leg was infected back in October. Also short of breath. Does not wear chronic oxygen. Vitals noted, in general she is awake and alert oriented x3 pleasant no acute distress. HEENT normal cephalic atraumatic mucous membranes moist. Cardio somewhat distant. Lungs show rales to about the mid lung field bibasilar diminished. Upper lungs are clear to auscultation bilaterally no rales rhonchi or wheezes good effort. No accessory muscle use. Extremities show her right lower extremity to be diffusely bright red erythematous and quite tender with blistering skin and a few open lesions. Left lower extremity has a dressing on the heel but otherwise no erythema Right lower extremity cellulitisthis appears to be the physiologic "spark that lit the fire" as far as her acute illness. Given the open lesions, the fact that she was recently on antibiotics, and the fact that she was recently in the hospital, will need to cover for nosocomial pathogens. Vanco and Zosyn to continue. Acute on chronic diastolic CHFlikely brought on by the physiologic stress from above. Diuresis, oxygen, supportive care. Hypoxiarelated to above. As above. Rheumatoid arthritis/chronic prednisone useshe is not showing any hemodynamic instability or other indications to warrant stress dose steroids at this time. Continue home dosing of prednisone, until the infection starts to improve we will hold her azathioprine for at least a few days. Elevated troponinlikely demand ischemia from the physiologic stress of above. DVT prophylaxisLovenox
[2019-02-08 16:40] LABS: Appearance Urine Cloudy (Clear); Bacteria Urine Automated Negative (Negative); Bilirubin Urine Negative (Negative); Blood Urine Negative (Negative); Color Urine Yellow; Epithelial Cell Urine Auto >30 /lpf (0-5); Glucose Urine UA Negative (Negative); Ketones Urine Negative (Negative); Leukocyte Esterase Urine 1+ (Negative); Nitrite Urine Negative (Negative); Protein Urine Trace (Negative); Specific Gravity Urine 1.021 (1.000-1.030); Urobilinogen Urine Negative (Negative)
[2019-02-08 17:08] LABS: RBC Urine Automated 0-4 /hpf (0-4)
[2019-02-08 17:09] LABS: Renal Epithelial Cells Urine 0-5 /lpf (0-5)
[2019-02-08] MEDS: METOPROLOL TARTRATE 25 MG TAB PO SCH (21:46)
[2019-02-08] MEDS: PANTOprazole 40 MG TAB PO SCH (21:48)
[2019-02-08] MEDS: ARTIFICIAL TEARS OP SCH (21:50)
[2019-02-08] MEDS ORDERED: ENOXAPARIN INJ 40 MG/0.4 ML SYR SQ SCH (22:00)
[2019-02-09] MEDS: MoRPHine SULFATE 2 MG/ML CARP IV PRN ×2 (04:11→06:35)
[2019-02-09 06:31] LABS: Eosinophils # (auto) 0.07 K/uL (0-0.5); Eosinophils % (auto) 0.7 %; Hematocrit (blood only) 33.3 % (37-47); Immature Granulocytes # (auto) 0.06 K/uL (0.00-0.02); Immature Granulocytes % (auto) 0.6 %; Lymphocytes # (auto) 0.38 K/uL (1.2-3.4); Lymphocytes % (auto) 3.8 %; Mean Corpuscular Volume 83.3 fL (80-100); Mean Platelet Volume 9.3 fL (7.4-10.4); Monocytes # (auto) 0.46 K/uL (0.11-0.59); Monocytes % (auto) 4.6 %; Neutrophils # (auto) 9.12 K/uL (1.4-6.5); Neutrophils % (auto) 90.3 %; Platelet Count 266 K/uL (130-400); RDW Coefficient of Variation 16.8 % (11.5-14.5); RDW Standard Deviation 51.4 fL (36.4-46.3); White Blood Count 10.09 K/uL (4.8-10.8)
[2019-02-09] MEDS: PIPERACILLIN/TAZOBACTAM 3.375 GM in DEXTROSE 5% 100 ML IV SCH ×3 (06:35→21:32)
[2019-02-09 07:11] LABS: BUN Creatinine Ratio 36.1 (10-20); Creatinine Clr Calc Pharmacy 30.8 ml/min; Est GFR (African American) 59.3; Est GFR (Non-African American) 51.1; Potassium 3.8 mmol/L (3.5-5.1)
[2019-02-09] MEDS ORDERED: azaTHIOprine 50 MG TAB PO SCH (08:30)
[2019-02-09] MEDS: ACETAMINOPHEN 325 MG TAB PO SCH ×3 (08:53→20:40)
[2019-02-09] MEDS: ARTIFICIAL TEARS OP SCH ×2 (08:54→20:41)
[2019-02-09] MEDS: HEPARIN SOD 5,000 UNIT/0.5 ML VIAL SQ SCH (08:55)
[2019-02-09] MEDS: FUROSEMIDE 20 MG TAB PO SCH (08:55)
[2019-02-09] MEDS: PANTOprazole 40 MG TAB PO SCH ×2 (08:55→20:42)
[2019-02-09] MEDS: METOPROLOL TARTRATE 25 MG TAB PO SCH ×2 (08:56→20:41)
[2019-02-09] MEDS: VANCOMYCIN HCL 1,000 MG in SODIUM CHLORIDE 0.9% 250 ML IV SCH (09:49)
[2019-02-09] MEDS: predniSONE 10 MG TABLET PO SCH (09:51)
[2019-02-09] MEDS: TRAMADOL HCL 50 MG TABLET PO PRN (16:54)
[2019-02-09] MEDS ORDERED: FUROSEMIDE 40 MG in SYRINGE 0 ML IV ONE (17:30)
--- NOTE | 2019-02-09 19:17 | Hospitalist Progress Note ---
Date of Service February 09, 2019 Assessment & Plan (1) Cellulitis: Continue Vanco and Zosyn. (Given her recent infection and recent antibiotic for most covers notes nosocomial pathogens) Continue local wound care. In discussion with wound care, debridement may be needed, orthopedics is done this in the past we will reconsult. (2) Acute CHF: Acute on chronic diastolic CHF, related to the physiologic stress of above. She is improving, but not yet back to baseline. Continue additional Lasix on an as-needed basis, additional today. (3) Elevated troponin: Demand ischemia related to above. Overall appears to be stable. (4) Pressure ulcer: Continue local wound care (5) Leg wound, left: Local wound care, the right leg appears to need debridement, consult surgery. (6) DVT prophylaxis: Initially was going to utilize Lovenox, but on further review she had a very significant, very serious GI bleed, and given that she is ongoing prednisone and as well as ongoing significant frailty, pharmacologic DVT prophylaxis appears to have a strong albeit relative contraindication. Mech anical prophylaxis would be of dubious benefit given evidence showing very little true prevention of venous thromboembolic events, and in her case would cause real harm of skin breakdown. We will just have to try to mobilize her as best as possible. (7) Anemia: Follow (8) Rheumatoid arthritis: Continue her home prednisone, no clear indications for stress dosing right now. Hold the azathioprine for at least a few days until the infection improves. (9) GI (gastrointestinal bleed): Does not appear to be active. (10) Discharge planning issues: [facility] once [facility] is improved. Subjective Leg is feeling better but still hurts. Breathing is still felt better but not back to baseline. No other new complaints. Review of Systems Review of Systems: All systems reviewed & are unremarkable except as noted in HPI & below Physical Exam Physical Exam: General she is awake and alert and oriented pleasant no distress. HEENT normal cephalic atraumatic mucous membranes moist Lungs show faint Rales to may be a quarter of the way up with diminished at the base but definitely improved from yesterday otherwise clear to auscultation no rales rhonchi wheezes good effort. Extremities show the right lower extremity have now more of a dull pink erythema rather than the hot red from yesterday. The wounds are covered with dressings. Her left heel is dressed as well. She has chronic rheumatoid arthritis like changes. Results & Data Vital Signs (Past 12 Hours) Vital Signs Temp Pulse Resp BP Pulse Ox Pulse Ox 02/09/19 11:30 36.7 C 67 19 113/67 99 02/09/19 09:52 96 02/09/19 07:42 36.4 C L 75 21 146/64 H 92 (1) Rheumatoid arthritis Rheumatoid arthritis location: unspecified site Rheumatoid factor presence: unspecified presence Qualified Code(s): M06.9 - Rheumatoid arthritis, unspecified
--- NOTE | 2019-02-09 20:33 | Progress Note ---
DATE: 02/09/2019 The patient is known to me from admission back in approximately October for a left leg wound. That wound was treated with some type of beeswax preparation with the doctor at her nursing facility, Dr. Canales. It has subsequently completely healed. She has now developed a lesion on the right posterolateral calf very similar to what she had on the other side. This started off as a blister which ruptured on Tuesday and then sounded like it became secondarily infected. Her foot is warm. She does not have palpable pulses. She can bend her knee about 30 degrees and flex and extend her ankle. She does not ambulate. There is some mild erythema around the leg with minimal swelling. She has a large open area which looks like a blister that has ruptured. Centrally, there is some darkish tissue which is probably necrotic skin and dermis. Peripherally, there is exposed fatty tissue or it looks like the skin has already sloughed off. There is no purulence and there is some serosanguineous drainage present. There is no abscess evident. This may require surgical debridement. She would like to treat this as she did before. Once the area demarcates, we may be able to pull off some of the eschar. Once her cellulitis has stabilized, she could be returned to her facility and Dr. Canales could resume the wound treatments that were successful on the opposite side. She is afebrile, but she did have a low-grade white count when she came in. Her past medical history is noted in that she has rheumatoid arthritis. She is an 88 years old. She currently has elevated troponin and heart failure. Continue wound care treatments as per the wound care nurse. I have reviewed the images and her findings and plan. Will continue to follow along and monitor. I think of larger concerns why this is happening. I think one potential cause is pressure on the leg area from lying in bed often or sitting in a chair with pressure over this area. Try to minimize pressure on this area and her heels.
[2019-02-10] MEDS: PIPERACILLIN/TAZOBACTAM 3.375 GM in DEXTROSE 5% 100 ML IV SCH ×3 (05:40→21:31)
[2019-02-10 08:37] LABS: Creatinine Clr Calc Pharmacy 29.3 ml/min; Est GFR (African American) 55.8; Est GFR (Non-African American) 48.2
[2019-02-10] MEDS: predniSONE 10 MG TABLET PO SCH (08:42)
[2019-02-10] MEDS: PANTOprazole 40 MG TAB PO SCH ×2 (08:42→19:56)
[2019-02-10] MEDS: FUROSEMIDE 20 MG TAB PO SCH (08:42)
[2019-02-10] MEDS: ACETAMINOPHEN 325 MG TAB PO SCH ×3 (08:42→19:56)
[2019-02-10] MEDS: ARTIFICIAL TEARS OP SCH ×2 (08:43→19:56)
[2019-02-10] MEDS: HEPARIN SOD 5,000 UNIT/0.5 ML VIAL SQ SCH (08:44)
[2019-02-10] MEDS ORDERED: VANCOMYCIN TROUGH ONE (09:30)
--- NOTE | 2019-02-10 11:15 | Pharmacy Report ---
Pharmacy Abx Dose Short Note - Date of Service February 10, 2019 - Assessment & Plan Assessment 88 year old F receiving Vancomycin 1000mg IV Q24H and Zosyn for treatment of lower leg cellulitis Day # 3 of antimicrobial therapy. Per provider assessment; there is a large open area which looks like a blister has ruptured. There is no purulence, but there is some drainage present. There is no evident abscess. h/o MSSA from similar ulcer on left leg in Oct 2018. Laboratory Tests 02/10/19 09:57 Vancomycin Trough 17.7 Plan Vancomycin * Trough level of 17.7 mcg/mL is slightly supratherapeutic for this indication. Level is not yet reflective of steady state, but given longer dosing interval, is likely to continue to accumulate. * Change to 750 mg (~14mg/kg) IV every 24 hours * Goal trough level : 10 to 15 mcg/mL * Plan to check another trough on 02/12/19 before 1100 dose. Pharmacy will continue to follow and will adjust dose/frequency as necessary. Thank you.
[2019-02-10] MEDS: VANCOMYCIN HCL 750 MG in SODIUM CHLORIDE 0.9% 250 ML IV SCH (11:29)
[2019-02-10] MEDS: TRAMADOL HCL 50 MG TABLET PO PRN ×2 (11:29→17:21)
[2019-02-10] MEDS: METOPROLOL TARTRATE 25 MG TAB PO SCH ×2 (11:29→19:58)
[2019-02-10] MEDS: VANCOMYCIN HCL 1,000 MG in SODIUM CHLORIDE 0.9% 250 ML IV SCH (12:15)
--- NOTE | 2019-02-10 15:12 | Family Medicine Progress Note ---
Date of Service February 10, 2019 Assessment & Plan (1) Cellulitis: 88-year-old female with a history of CHF and rheumatoid arthritis presents with cellulitis of the right lower extremity. Right lower extremity cellulitis - Continue Vanco and Zosyn, continue local wound care. - Ortho consultedno procedure planned at this time Acute CHF - Acute on chronic diastolic CHF, related to the physiologic stress of above. - Continue additional Lasix on an as-needed basis - improved today, [facility] Elevated troponin - Demand ischemia related to above. Overall appears to be stable. Pressure ulcer, Leg wound, left - Continue local wound care Anemia -Stable Rheumatoid arthritis - Continue her home prednisone, no clear indications for stress dosing right now. Hold the azathioprine for at least a few days until the infection improves Discharge planning issues - [facility] is improved. DVT prophylaxis Subcu heparin CODE STATUS DNR/DNI (2) Anemia: (3) Elevated troponin: (4) Pressure ulcer: (5) Leg wound, left: (6) DVT prophylaxis: (7) Acute CHF: (8) Rheumatoid arthritis: (9) GI (gastrointestinal bleed): Supervising Physician Co-Signing Physician Notes I personally examined the patient and verified all jolly points of history and exam, discussed case, and agree with decision making with Dr Bonilla. overall feeling better, leg still hurts, but things seem to be improving. off O2, no sob. Vitals noted, in general she is awake and alert oriented x3 pleasant no acute distress. HEENT normal cephalic atraumatic mucous membranes moist. Lungs are clear to auscultation bilaterally no rales rhonchi or wheeze with good effort. Extremities show right lower extremity dull pink erythema with much less swelling, she does have wounds that are dressed. Left lower extremity has a couple of wounds that are dressed. No erythema. Right lower extremity cellulitisthis appears to be the physiologic "spark that lit the fire" as far as her acute illness. Given the open lesions, the fact that she was recently on antibiotics, and the fact that she was recently in the hospital, continue to cover for nosocomial pathogens. Vanco and Zosyn for now, ongoing follow-up by surgery, if it becomes clear that no drainage is necessary, then we can start to transition to oral antibiotics and look for return to SNF. Acute on chronic diastolic CHFlikely brought on by the physiologic stress from above. This appears to resolve Hypoxiarelated to above. As above. Appears to have resolved Rheumatoid arthritis/chronic prednisone usecontinue home dosing of prednisone, still no indications for stress dosing. Continue to hold azathioprine for now. Elevated troponinlikely demand ischemia from the physiologic stress of above. No symptoms DVT prophylaxisLovenox Stable for transition to [facility], ongoing follow-up day today, working towards return to SNF. Subjective 88 female h/o RA treated for rigth LE cellulitis with broad spectrum abx. Doing well today. States that her breathing has improved. States that the pain in her right leg persist. Denies fevers. Tolerating diet. Review of Systems Constitutional: no fever, no chills and no sweats Respiratory: no cough, no dyspnea and no wheezing Cardiovascular: no chest pain and no palpitations Gastrointestinal: no abdominal pain, no nausea and no vomiting Musculoskeletal: right leg pain Physical Exam Constitutional: WD/WN, vitals as above Eyes: PERRL, conjunctivae normal, anicteric sclerae ENMT: external ear and nose normal, oropharynx normal Neck: trachea midline, no thyromegaly Respiratory: normal respiratory effort, lungs clear to auscultation Cardiovascular: RRR, no murmur, no edema Gastrointestinal (Abdomen): normal bowel sounds, soft, nontender, no hepatosplenomegaly Musculoskeletal: right LE ext tenderness Deformed digits of the upper and lower extremity consistent with advanced RA Skin: erythema of the right lower ext, improved, dressings are clean, dry, intact Psychiatric: A+Ox3, euthymic affect Results & Data Vital Signs (Past 12 Hours) Vital Signs Temp Pulse Resp BP Pulse Ox 02/10/19 11:27 36.8 C 79 20 123/51 L 91 02/10/19 08:08 36.9 C 67 18 127/63 98 02/10/19 03:17 36.5 C 70 19 144/61 H 95 Laboratory Results Laboratory Last Values WBC 10.09 K/uL (4.8-10.8) 02/09/19 06:05 RBC 4.00 M/uL (4.2-5.4) L 02/09/19 06:05 Hgb 10.0 g/dL (12.0-16.0) L 02/09/19 06:05 Hct 33.3 % (37-47) L 02/09/19 06:05 MCV 83.3 fL (80-100) 02/09/19 06:05 MCH 25.0 pg (25-34) 02/09/19 06:05 MCHC 30.0 g/dL (32-36) L 02/09/19 06:05 RDW Std Deviation 51.4 fL (36.4-46.3) H 02/09/19 06:05 RDW Coeff of Evelyne 16.8 % (11.5-14.5) H 02/09/19 06:05 Plt Count 266 K/uL (130-400) 02/09/19 06:05 MPV 9.3 fL (7.4-10.4) 02/09/19 06:05 Immature Gran % (Auto) 0.6 % 02/09/19 06:05 Neut % (Auto) 90.3 % 02/09/19 06:05 Lymph % (Auto) 3.8 % 02/09/19 06:05 Barry % (Auto) 4.6 % 02/09/19 06:05 Eos % (Auto) 0.7 % 02/09/19 06:05 Baso % (Auto) 0.0 % 02/09/19 06:05 Immature Gran # (Auto) 0.06 K/uL (0.00-0.02) H 02/09/19 06:05 Neut # (Auto) 9.12 K/uL (1.4-6.5) H 02/09/19 06:05 Lymph # (Auto) 0.38 K/uL (1.2-3.4) L 02/09/19 06:05 Barry # (Auto) 0.46 K/uL (0.11-0.59) 02/09/19 06:05 Eos # (Auto) 0.07 K/uL (0-0.5) 02/09/19 06:05 Baso # (Auto) 0.00 K/uL (0-0.2) 02/09/19 06:05 ESR > 90 mm/hr (0-21) H 02/08/19 06:45 PT 10.4 Seconds (9.0-12.0) 02/08/19 06:45 INR 1.0 (0.9-1.1) 02/08/19 06:45 APTT 25.4 Seconds (21.0-31.0) 02/08/19 06:45 PTT Ratio 0.9 02/08/19 06:45 D-Dimer 1710 ug/L FEU (0-500) H* 02/08/19 06:45 ABG pH 7.46 (7.35-7.45) H 02/08/19 06:45 ABG pCO2 46 mmHg (35-46) 02/08/19 06:45 ABG pO2 56 mm/Hg (80-95) L 02/08/19 06:45 ABG HCO3 32 mmol/L (19-24) H 02/08/19 06:45 ABG O2 Saturation 88.4 % (90-95) L 02/08/19 06:45 ABG Base Excess 6.8 mEq/L (-9-1.8) H 02/08/19 06:45 Sergey Test Pos (Pos) 02/08/19 06:45 Barometric Pressure 734.9 mm/Hg 02/08/19 06:45 Oxygen Given Room Air 02/08/19 06:45 Sodium 140 mmol/L (136-145) 02/09/19 06:05 Potassium 3.8 mmol/L (3.5-5.1) 02/09/19 06:05 Chloride 99 mmol/L (98-107) 02/09/19 06:05 Carbon Dioxide 34 mmol/L (21-32) H 02/09/19 06:05 Anion Gap 7.0 (3-11) 02/09/19 06:05 BUN 35 mg/dl (7-18) H 02/09/19 06:05 Creatinine 1.03 mg/dl (0.6-1.2) 02/10/19 07:32 Est Cr Clr Drug Dosing 29.3 ml/min 02/10/19 07:32 Est GFR ( Amer) 55.8 02/10/19 07:32 Est GFR (Non-Af Amer) 48.2 02/10/19 07:32 BUN/Creatinine Ratio 36.1 (10-20) H 02/09/19 06:05 Glucose 95 mg/dl (70-99) 02/09/19 06:05 Lactate 1.1 mmol/L (0.4-2.0) 02/08/19 06:45 Calcium 9.0 mg/dl (8.5-10.1) 02/09/19 06:05 Magnesium 2.5 mg/dl (1.8-2.4) H 02/08/19 06:45 Total Bilirubin 0.4 mg/dl (0.2-1) 02/08/19 06:45 AST 15 U/L (15-37) 02/08/19 06:45 ALT 15 U/L (12-78) 02/08/19 06:45 Alkaline Phosphatase 78 U/L (45-117) 02/08/19 06:45 Troponin I 0.232 ng/ml (0-0.045) H* 02/08/19 12:51 C-Reactive Protein 15.00 mg/dl (0-0.29) H 02/08/19 06:45 Total Protein 7.3 gm/dl (6.4-8.2) 02/08/19 06:45 Albumin 2.7 gm/dl (3.4-5.0) L 02/08/19 06:45 Globulin 4.6 gm/dl (2.5-4.0) H 02/08/19 06:45 Albumin/Globulin Ratio 0.6 (0.9-2) L 02/08/19 06:45 Procalcitonin 0.68 ng/ml (0-0.5) H 02/08/19 06:45 Urine Color Yellow 02/08/19 16:20 Urine Appearance Cloudy (Clear) H 02/08/19 16:20 Urine pH 6.0 (4.5-7.5) 02/08/19 16:20 Ur Specific [place] 1.021 (1.000-1.030) 02/08/19 16:20 Urine Protein Trace (Negative) H 02/08/19 16:20 Urine Glucose (UA) Negative (Negative) 02/08/19 16:20 Urine Ketones Negative (Negative) 02/08/19 16:20 Urine Blood Negative (Negative) 02/08/19 16:20 Urine Nitrite Negative (Negative) 02/08/19 16:20 Urine Bilirubin Negative (Negative) 02/08/19 16:20 Urine Urobilinogen Negative (Negative) 02/08/19 16:20 Ur Leukocyte Esterase 1+ (Negative) H 02/08/19 16:20 Urine WBC (Auto) 10-30 /hpf (0-5) H 02/08/19 16:20 Urine RBC (Auto) 0-4 /hpf (0-4) 02/08/19 16:20 U Hyaline Cast (Auto) 1-5 /lpf (0-5) 02/08/19 16:20 U Epithel Cells (Auto) >30 /lpf (0-5) H 02/08/19 16:20 Urine Bacteria (Auto) Negative (Negative) 02/08/19 16:20 Ur Renal Epithelial Cell 0-5 /lpf (0-5) 02/08/19 16:20 Urine Yeast Not Reportable 02/08/19 16:20 Nasal Screen MRSA (PCR) Negative (Negative) 02/08/19 13:20 Vancomycin Trough 17.7 mcg/ml (See Comment) 02/10/19 09:57 Resident Activity Tracking Resident Involvement: Resident Care Provided Care Provided: Adult Hospital Medicine (1) Rheumatoid arthritis Rheumatoid arthritis location: unspecified site Rheumatoid factor presence: unspecified presence Qualified Code(s): M06.9 - Rheumatoid arthritis, unspecified
[2019-02-11] MEDS: TRAMADOL HCL 50 MG TABLET PO PRN (00:29)
[2019-02-11] MEDS: PIPERACILLIN/TAZOBACTAM 3.375 GM in DEXTROSE 5% 100 ML IV SCH (05:38)
[2019-02-11 07:46] LABS: Creatinine Clr Calc Pharmacy 26.9 ml/min; Est GFR (African American) 50.4; Est GFR (Non-African American) 43.5
[2019-02-11] MEDS: METOPROLOL TARTRATE 25 MG TAB PO SCH (08:04)
[2019-02-11] MEDS: predniSONE 10 MG TABLET PO SCH (08:04)
[2019-02-11] MEDS: PANTOprazole 40 MG TAB PO SCH (08:05)
[2019-02-11] MEDS: FUROSEMIDE 20 MG TAB PO SCH (08:05)
[2019-02-11] MEDS: ACETAMINOPHEN 325 MG TAB PO SCH (08:06)
[2019-02-11] MEDS: ARTIFICIAL TEARS OP SCH (08:06)
[2019-02-11] MEDS: HEPARIN SOD 5,000 UNIT/0.5 ML VIAL SQ SCH (08:11)
[2019-02-11] MEDS: MoRPHine SULFATE 2 MG/ML CARP IV PRN (08:13)
[2019-02-11] MEDS: VANCOMYCIN HCL 750 MG in SODIUM CHLORIDE 0.9% 250 ML IV SCH (11:01)
--- NOTE | 2019-02-11 12:09 | Discharge Summary ---
Date of Service February 11, 2019 Admission HPI Per Admitting Provider 88 y/o F with hx of CHF, RA (on azathioprine) who was admitted Oct 2018 for LLE cellulitis (requiring I&D; MSSA; treated with vanco via PICC, then transitioned to and still taking cefdinir) presents for 4-7 days of RLE pain/drainage and several days of dyspnea. Right leg pain: Her left leg has been improving since her inpatient treatment back in Oct. She states a procedure was done on her right leg during that inpatient stay as well and that while her left leg has continued to improve since her discharge, her right leg has now developed similar sx. She has had pain in her right leg for "a while" but cannot remember exactly when the pain started. Over the past week she noticed redness and blisters on the lateral aspect of the right leg and then 4 days ago the blisters began to drain. Once the draining started, she felt some relief from the pressure but continued to have pain. When her condition did not improve, her [facility] facility sent [facility] to the hospital. She is adamant that she would like to avoid a graft on her right leg. She states her left leg has healed well with wound care and "beeswax" and she would like the same care for her right leg. Shortness of breath: Over the last few days, she has also developed severe dyspnea which is worsened with eating or talking. She states that she did not take her Lasix or prednisone his morning and feels her breathing is worsening. Other Hx: Patient also with hx of GI bleed in Jul 2018 secondary to gastric ulcers. Required transfer to tertiary care center due to presence of SMA stenosis and concern for ischemia. 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 Was 3.6 cm in 2014 and found to be 4.3x4.0 cm in 2018. She denies fever, chills, N/V, abd pain. She reports very rare left-sided sharp chest pain. She reports occasional "hot flashes" and feels she bruises easily. Principal Diagnosis CELLULITIS Discharge Exam Vitals noted and reviewed, as above GENERAL: no acute distress HEAD: normocephalic atraumatic ENT: sclerae normal, trachea midline RESP: normal work of breathing CV: regular rate and rhythm ABDOMEN: nondistended SKIN: erythema noted on RLE up to knee, bandage in place, moderately tender. PSYCH: appropriate mood and affect NEURO: normal speech Discharge Data Allergies Allergy/AdvReac Type Severity Reaction Status Date / Time erythromycin base AdvReac Mild upset Verified 02/08/19 06:40 stomach Consultations 02/08/19 09:36 ED Decision to Admit Stat 02/09/19 12:18 Consult Orthopedic Surgery Routine Ordered Studies 02/08/19 07:58 US venous doppler [facility] Stat Hospital Course (1) Cellulitis: 88-year-old female with a history of CHF and rheumatoid arthritis presents with cellulitis of the right lower extremity. Right lower extremity cellulitis - Ortho consultedno procedure planned at this time. Recommend relieving pressure on areas of leg that is ulcerating. - On Vanco and Zosyn for approx 72 hours with good improvement - to continue at home with PO doxycycline and cefdinir (renally dosed) - continue wound care on discharge PAD - stable, although likely contributory to frequent ulcerations as above. history of GI bleed - does not appear to be active at this time Acute on chronic diastolic CHF - 2/2 to the physiologic stress of above. - Resume home lasix dose 20mg daily, heart healthy diet. Elevated troponin 2/2 demand ischemia - related to above. - appears to be chronically elevated, baseline is 0.2 - 0.4 - Overall appears to be stable, continue to optimize heart healthy diet and diuresis as above. Pressure ulcer, Leg wound, left - Continue local wound care Anemia -Stable Rheumatoid arthritis - Continue her home prednisone, no clear indications for stress dosing right n ow. - resume home azathioprine now that clinically improved. Discharge planning issues - Will return to the [facility] once she is improved. DVT prophylaxis Subcu heparin given here. CODE STATUS DNR/DNI (2) Anemia: (3) Elevated troponin: (4) Pressure ulcer: (5) Leg wound, left: (6) DVT prophylaxis: (7) Acute CHF: (8) Rheumatoid arthritis: (9) GI (gastrointestinal bleed): Total Time Total Time Spent Total Time Spent (In Minutes): <30 Total Time Includes: Examination of the Patient, Discharge Planning, Medication Reconciliation and Communication With Other Providers Discharge Plan Discharge Items Patient Disposition: Trans Resident Long-Term Care Reason For Visit: LEG CELLULITIS, ELEVATED TROPONIN Discharge Diagnosis: LEG CELLULITIS, DEMAND ISCHEMIA Condition: Fair Discharge Goals: Decrease discomfort, Improve function, Learn about illness and Therapeutic intervention Activity: Per 'Additional Instructions' section Exercise/Sports: Gradually increase as tolerated Non-emergency contact: Primary Care Provider Call non-emergency contact if: you have any medication questions, your pain is not controlled, your temperature is above 101, your wound has increased redness and your wound pain has increased [facility] - Diet: Regular and See below Diet Comment: MINCED AND MOIST Addtl Provider Instructions: 88-year-old female with a history of CHF and rheumatoid arthritis presents with cellulitis of the right lower extremity. Right lower extremity cellulitis - Ortho consultedno procedure planned at this time. Recommend relieving pressure on areas of leg that is ulcerating. - On Vanco and Zosyn for approx 72 hours with good improvement - to continue at home with PO doxycycline and cefdinir (renally dosed) - continue wound care on discharge PAD - stable, although likely contributory to frequent ulcerations as above. history of GI bleed - does not appear to be active at this time Acute on chronic diastolic CHF - 2/2 to the physiologic stress of above. - Resume home lasix dose 20mg daily, heart healthy diet. Elevated troponin 2/2 demand ischemia - related to above. - appears to be chronically elevated, baseline is 0.2 - 0.4 - Overall appears to be stable, continue to optimize heart healthy diet and diuresis as above. Pressure ulcer, Leg wound, left - Continue local wound care Anemia -Stable Rheumatoid arthritis - Continue her home prednisone, no clear indications for stress dosing right now. - resume home azathioprine now that clinically improved. Discharge planning issues - Will return to the [facility] once she is improved. DVT prophylaxis Subcu heparin given here. CODE STATUS DNR/DNI Prescriptions: New doxycycline hyclate 100 mg Capsule 100 mg PO BID 10 Days Qty: 20 RF: 0 Continued acetaminophen [Tylenol] 325 mg Tablet 650 mg PO TID RF: 0 prednisone 10 mg tablet 10 mg PO DAILY RF: 0 albuterol sulfate 2.5 mg /3 mL (0.083 %) Solution For Nebulization 1 unit INHALATION Q4 PRN (Reason: Shortness Of Breath) RF: 0 lidocaine [Lidoderm] 5 % Adhesive Patch,Medicated 1 patch TOPICAL DAILY PRN (Reason: Pain) RF: 0 omeprazole 20 mg capsule,delayed release(DR/EC) 20 mg PO BID RF: 0 furosemide [Lasix] 20 mg tablet 20 mg PO DAILY RF: 0 Systane (PF) 0.4-0.3 % Dropperette 2 drp OPHTHALMIC (EYE) BID RF: 0 Roxanol 20mg/Ml 1 dose PO UD PRN (Reason: Pain) RF: 0 sodium chloride [Saline Mist] 0.65 % Aerosol,[place] 2 spray INTRANASAL QID PRN (Reason: dryness) RF: 0 Soothe Night Time Lubricant 80-20 % Ointment 1 applic OPHTHALMIC (EYE) TID PRN (Reason: Pain) RF: 0 tramadol 50 mg Tablet 50 mg PO Q6H PRN (Reason: Pain) RF: 0 polyethylene glycol 3350 [Miralax] 17 gram/dose Powder 17 g PO DAILY PRN (Reason: Constipation) RF: 0 azathioprine [Imuran] 50 mg Tablet 25 mg PO DAILY RF: 0 cefdinir 300 mg Capsule 300 mg PO DAILY 7 Days Qty: 14 RF: 0 Stand-Alone Forms: [facility] Discharge Orders: Discharge Order (Routine); Ordered 02/11/19 Ordered By: Sofi Bonilla Admission Data Admit Date/Time: 02/08/19 09:57 Attending Provider: Jatinder Strong Admit Provider: Jatinder Strong Primary Care Provider: Kushal Grubbs Other Providers: Desean Bradshaw ; Jabari Everett Service: Medical Other Interventions: Discharge Summary Assessment (RN) Last Done: 02/11/19 13:56 Pending Studies at Discharge: No DC Date/Time DO NOT enter until pt leaves facility: 02/11/19 14:36 Supervising Physician Co-Signing Physician Notes I personally examined the patient and verified all jolly points of history and exam, discussed case, and agree with decision making with Dr Bonilla. Breathing well. Leg doing better. No new complaints. Vitals noted, in general she is awake and alert oriented x3 pleasant no acute distress. HEENT normal cephalic atraumatic mucous membranes moist. Lungs are clear to auscultation bilaterally no rales rhonchi or wheeze with good effort. Extremities show right lower extremity dull pink erythema with much less swelling, main wound on the right lower extremity appears to be an ulceration with bloody base, but no surrounding erythema no exudate. No erythema. Right lower extremity cellulitisthis appears to be the physiologic "spark that lit the fire" as far as her acute illness. Given the open lesions, the fact that she was recently on antibiotics, and the fact that she was recently in the hospital, continue to cover for nosocomial pathogens. Finish out a course of oral antibiotics, ongoing wound care as an outpatient, ongoing surgical follow- up as an outpatient. Right now it does not appear that surgery is imminently needed. Stable for return to her home [facility] Acute on chronic diastolic CHFlikely brought on by the physiologic stress from above. This appears to have resolved. Outpatient follow-up Hypoxiarelated to above. As above. Appears to have resolved Rheumatoid arthritis/chronic prednisone usedischarge on home meds Elevated troponinlikely demand ischemia from the physiologic stress of above. No symptoms DVT prophylaxisLovenox Stable for return to SNF. Finish out a course of antibiotics, ongoing wound care, ongoing outpatient surgical follow-up. Resident Activity Tracking Resident Involvement: Resident Care Provided Care Provided: Adult Hospital Medicine
[2019-02-11] MEDS ORDERED: CEFDINIR 300 MG CAP PO SCH ×2 (14:00→21:00)
[2019-02-11] MEDS ORDERED: DOXYCYCLINE HYCLATE 100 MG CAP PO SCH (21:00)
== END 2019-02-11 14:36 | DRG 602 ==
LOC: ED 06:06 → 2S 09:57 → 4E 02-10 17:09